=== PATIENT | female | born 1950 | race Hispanic/Latino ===

== ENCOUNTER 2018-12-05 10:58 | Inpatient (IN) | payer MEDICARE ==
--- NOTE | 2018-12-05 11:49 | ED PDOC ---
HPI: General Adult Time Seen by Provider: 12/05/18 11:35 Chief Complaint (Nursing): Weakness/Neurological Deficit Chief Complaint (Provider): Generalized weakness History Per: Patient, Family Additional Complaint(s): Pt reports bilateral hand shaking X 1 month, intermittent, resolves on its own. Was at eye doctor's appointment when she went down 2 steps and both legs gave out, fell backwards but was caught by daughter. When called into office, felt same symptoms, whole body tensed up and needed to sit down. Denies LOC, CP, SOB, focal weakness, ALFONSO, paresthesias. Pt on 2L O2 at home. Past Medical History Reviewed: Nursing Documentation, Vital Signs Vital Signs: Last Vital Signs Temp 98.2 F 12/05/18 11:25 Pulse 111 H 12/05/18 11:25 Resp 20 12/05/18 11:25 BP 93/37 L 12/05/18 11:25 Pulse Ox 75 L 12/05/18 11:25 - Medical History PMH: Diabetes, Emphysema, HTN - Family History Family History: States: Unknown Family Hx - Social History Current smoker - smoking cessation education provided: No Alcohol: None - Allergies Allergies/Adverse Reactions: Allergies Allergy/AdvReac Type Severity Reaction Status Date / Time No Known Allergies Allergy Verified 12/05/18 11:13 Review of Systems Constitutional: Negative for: Fever, Chills Cardiovascular: Negative for: Chest Pain, Palpitations Respiratory: Negative for: Cough, Shortness of Breath Gastrointestinal: Negative for: Nausea, Vomiting, Abdominal Pain, Diarrhea Genitourinary Female: Negative for: Dysuria, Hematuria Skin: Negative for: Rash, Lesions Neurological: Positive for: Weakness (Generalized). Negative for: Numbness, Incoordination, Change in Speech, Confusion, Seizures, Altered Mental Status, Headache, Dizziness Physical Exam - Reviewed Vital Signs Reviewed: Yes - Physical Exam Appears: Positive for: Well, No Acute Distress (Speaking full sentences) Head Exam: Positive for: ATRAUMATIC Skin: Positive for: Normal Color, Warm, Dry Eye Exam: Positive for: Normal appearance, EOMI, PERRL Cardiovascular/Chest: Positive for: Tachycardia. 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 Negative for: Motor/Sensory Deficits, Aphasia, Facial Droop - Laboratory Results Result Diagrams: 12/05/18 11:57 12/05/18 11:57 - ECG O2 Sat by Pulse Oximetry: 75 Pulse Ox Interpretation: Abnormal - Radiology X-Ray: Interpreted by Sd X-Ray Interpretation: No Acute Disease - Critical Care Total Time (In Min): 60 Medical Decision Making Medical Decision Makin yo female with generalized weakness. - labs - EKG - CXR - CT head 13:20 BiPAP ordered but no machines available, Vapotherm ordered. 14:[address] Henry, admit to ICU. 15:[address] Boswell, Dr. Cuello for Pulmonary consult. Disposition - Clinical Impression Clinical Impression: Acute respiratory failure with hypoxia and hypercarbia, Uncontrolled diabetes mellitus - Disposition Disposition Time: 14:46 Condition: GUARDED - Pt Status Changed To: Hospital Disposition Of: Inpatient - Admit Certification Admit to Inpatient:: After my assessment, the patient will require hospitalization for at least two midnights. This is because of the severity of symptoms shown, intensity of services needed, and/or the medical risk in this patient being treated as an outpatient. - POA Present On Arrival: Poor Glycemic Control
[2018-12-05 12:05] LABS: BASO # 0.1 K/uL (0.0-0.2); BASO % 0.9 % (0.0-2.0); EOS # 0.1 K/uL (0.0-0.7); EOS % 0.6 % (0.0-4.0); HEMOGLOBIN 7.8 g/dL (12.0-16.0); LYMPH % 11.2 % (20.0-40.0); MEAN CELL VOLUME 74.9 fl (81.0-99.0); MEAN CORPUSCULAR HGB CONC 26.6 g/dL (33.0-37.0); MONO # 0.6 K/uL (0.0-0.8); MONO % 6.8 % (0.0-10.0); NEUT # 6.9 K/uL (1.8-7.0); NEUT % 80.5 % (50.0-75.0); NRBC % 0.1 % (0.0-0.0); RBC 3.91 Mil/uL (3.80-5.20); RED CELL DISTRIBUTION WIDTH 21.4 % (11.5-14.5); WHITE BLOOD COUNT 8.6 K/uL (4.8-10.8)
[2018-12-05 12:11] LABS: INR 1.1; PROTHROMBIN TIME 12.5 Seconds (9.8-13.1)
[2018-12-05 12:13] LABS: PARTIAL THROMBOPLASTIN TIME 30.9 Seconds (25.6-37.1)
[2018-12-05 12:31] LABS: ALB/GLOB RATIO 1.1 (1.0-2.1); ALBUMIN 3.8 g/dL (3.5-5.0); ALT/SGPT 34 U/L (9-52); AST/SGOT 36 U/L (14-36); BLOOD UREA NITROGEN 26 mg/dl (7-17); CALCIUM 9.1 mg/dL (8.4-10.2); GFR NON-AFRICAN AMERICAN > 60
[2018-12-05] MEDS ORDERED: Insulin Regular 100 units/ml IV STA (12:39)
--- NOTE | 2018-12-05 12:49 | CT ---
Date of service: 12/05/2018 PROCEDURE: CT HEAD WITHOUT CONTRAST. HISTORY: Generalized weakness COMPARISON: No prior study available comparison TECHNIQUE: Axial computed tomography images were obtained through the head/brain without intravenous contrast. Radiation dose: Total exam DLP = 873.94 mGy-cm. This CT exam was performed using one or more of the following dose reduction techniques: Automated exposure control, adjustment of the mA and/or kV according to patient size, and/or use of iterative reconstruction technique. FINDINGS: HEMORRHAGE: No acute parenchymal, subarachnoid or extra-axial hemorrhage. BRAIN: Suspect minimal chronic periventricular white matter ischemic changes. Mild age-appropriate volume loss.. Minor vascular calcifications both carotid siphons. VENTRICLES: No obstructive hydrocephalus. CALVARIUM: Unremarkable. PARANASAL SINUSES: The frontal sinuses are hypoplastic although clear.. Remaining visualized paranasal sinuses well-developed and currently well-aerated. MASTOID AIR CELLS: Unremarkable as visualized. No inflammatory changes. OTHER FINDINGS: None. IMPRESSION: No acute intracranial hemorrhage. Suspect minimal chronic periventricular white matter ischemic changes.
[2018-12-05 13:08] LABS: ABG ALLEN TEST YES; ARTERIAL BLOOD GAS HEMOGLOBIN 7.9 g/dL (11.7-17.4); ARTERIAL BLOOD GAS O2 CAPACITY 10.3 mL/dL (16-24); ARTERIAL BLOOD GAS O2 CONTENT 9.3 ML/dL (15-23); ARTERIAL BLOOD GAS O2 SAT 90.3 % (95-98); ARTERIAL BLOOD GAS PCO2 91 mm/Hg (35-45); ARTERIAL BLOOD GAS PH 7.33 (7.35-7.45); ARTERIAL BLOOD GAS PO2 49 mm/Hg (80-100); ARTERIAL BLOOD GAS TCO2 50.8 mmol/L (22-28)
[2018-12-05] MEDS ORDERED: Albuterol-Ipratrop 3 mg / 0.5 (3 ml) UD INH STA ×2 (14:41→16:49)
[2018-12-05] MEDS ORDERED: Insulin Regular 100 units/ml ONE (14:52)
--- NOTE | 2018-12-05 14:58 | RAD ---
Date of service: 12/05/2018 HISTORY: Generalized weakness COMPARISON: No prior. FINDINGS: LUNGS: No active pulmonary disease. PLEURA: No significant pleural effusion identified, no pneumothorax apparent. CARDIOVASCULAR: No aortic atherosclerotic calcification present. Normal cardiac size. No pulmonary vascular congestion. OSSEOUS STRUCTURES: No significant abnormalities. VISUALIZED UPPER ABDOMEN: Normal. OTHER FINDINGS: None. IMPRESSION: No active disease.
[2018-12-05] MEDS ORDERED: Albuterol-Ipratrop 3 mg / 0.5 (3 ml) UD ONE ×2 (15:16→16:53)
[2018-12-05] MEDS ORDERED: Azithromycin 500 MG IV IVPB ONE (15:16)
[2018-12-05] MEDS ORDERED: cefTRIAXone (Rocephin) 1 gm Inj ONE (15:16)
[2018-12-05] MEDS: Azithromycin 500 MG in Sodium Chloride 0.9% 250 ML IV STA (16:55)
[2018-12-05] MEDS ORDERED: Potassium Chloride 20 MEQ in Sodium Chloride 0.45% 1,000 ML IV SCH (17:45)
[2018-12-05 19:17] LABS: SQUAMOUS EPITHIAL 3 /hpf (0-5); URINE BACTERIA RARE (<OCC); URINE BILIRUBIN NEGATIVE (NEGATIVE); URINE BLOOD SMALL (NEGATIVE); URINE CLARITY SLIGHTY-CLOUDY (Clear); URINE COLOR YELLOW (YELLOW); URINE GLUCOSE (UA) >=500 mg/dL (NEGATIVE); URINE LEUKOCYTE ESTERASE NEG Leu/uL (Negative); URINE PROTEIN NEGATIVE (NEGATIVE)
[2018-12-05] MEDS: Albuterol-Ipratrop 3 mg / 0.5 (3 ml) UD INH SCH (19:38)
[2018-12-05] MEDS: Insulin Regular 100 units/ml SC SCH (21:20)
[2018-12-06 05:43] LABS: HEMOGLOBIN 7.7 g/dL (12.0-16.0); MEAN CELL VOLUME 72.7 fl (81.0-99.0); MEAN CORPUSCULAR HEMOGLOBIN 19.9 pg (27.0-31.0); MEAN CORPUSCULAR HGB CONC 27.4 g/dL (33.0-37.0); RBC 3.87 Mil/uL (3.80-5.20); RED CELL DISTRIBUTION WIDTH 21.4 % (11.5-14.5); WHITE BLOOD COUNT 7.1 K/uL (4.8-10.8)
[2018-12-06 05:45] LABS: BLOOD UREA NITROGEN 26 mg/dl (7-17); CALCIUM 9.2 mg/dL (8.4-10.2); GFR NON-AFRICAN AMERICAN > 60
--- NOTE | 2018-12-06 05:51 | PN ---
DATE: 12/05/2018 CRITICAL CARE PROGRESS NOTE LOCATION: The patient is in room 423. TIME SPENT: 45 minutes. SUBJECTIVE: The patient is seen and evaluated at the bedside. Events in ER discussed with ER physician and noted. Past medical, surgical, family and social history reviewed. A 68-year-old morbidly obese female, a reformed smoker with history significant for chronic obstructive pulmonary disease, diabetes mellitus type 2, hypertension, diabetic neuropathy, possible obstructive sleep apnea, status post recent sleep study, awaiting for the report, has been in her usual state of health until a month. The patient has been noting shaking of the extremities being followed by primary Dr. Boswell and wallpaper consultant Dr. Dane Ko. 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 In ER, the patient's vital signs showed temperature 98.2, heart rate of 111, respiratory rate 20, blood pressure 93/37, pulse oximetry 75% on room air. Chest x-ray showed no acute abnormality. Arterial blood gas showed a hypercapnic hypoxic respiratory failure. The patient is placed on high-flow nasal oxygen. Admitted to ICU. REVIEW OF SYSTEMS: No fever, chills, cough. No chest pain, palpitation. No reduced appetite. No nausea, vomiting, no diarrhea. Swelling of the lower extremities, unsteady gait due to diabetic neuropathy. MEDICATIONS AT HOME: Noted aspirin 81 mg daily, Plavix 75 mg daily, metformin 1 tablet twice daily with empagliflozin, Lexapro 20 mg daily, simvastatin 1 tablet daily, ferrous sulfate 1 tablet daily, furosemide 40 mg daily, glipizide 5 mg b.i.d., Vascepa 2 g twice daily, Linzess 145 mg daily; liraglutide (Victoza) 0.6 mg/0.1 mL, 1.8 mg subcu daily; Lyrica 50 mg at bedtime, valsartan 40 mg daily, vortioxetine 10 mg daily at night. ALLERGIES: NONE. FAMILY HISTORY: Noncontributory. SOCIAL HISTORY: Lives with family, reformed smoker, does not drink alcohol. No recreational drug use. PHYSICAL EXAMINATION: GENERAL: Morbidly obese female with a BMI 38.6. Oriented to name, place and time. VITAL SIGNS: Temperature 98.4, heart rate 115, blood pressure 115/57, respiratory rate of 22, saturation 93% on high-flow nasal oxygen, FiO2 of 50%. HEAD, EYES, EARS, NOSE AND THROAT: Pupils reactive. Conjunctivae pale. Sclerae white. NECK: Supple. Trachea central. CHEST: Bilateral breath sounds. Prolonged expiration. Bilateral audible wheezing. HEART: Rhythm regular. S1, S2 rapid. No S3, S4, gallop. No audible murmur. ABDOMEN: Bowel sounds present. Soft, pendulous, nontender. EXTREMITIES: Dependent edema. DP palpable. No palpable cord. NEUROLOGIC: Alert and oriented to name, place and time. No cranial nerve deficit. Deep tendon reflexes are 1+. Sensory impairment, plantar flexor. LABORATORY DATA: PT 12.5, INR 1.1, PTT 30.9. ABG: pH of 7.33, pCO2 of 91, pO2 of 49. Oxygen on FiO2 is 2 liters. SMA-7: Sodium 139, potassium 5, chloride 90, CO2 of 41, blood urea nitrogen 26, creatinine 0.7, random glucose 339, calcium 9.1, phosphorus 4.9, magnesium 1.8, total bilirubin 0.8, AST 36, ALT 34, alkaline phosphatase 62, troponin 0.014, total protein 7.1, albumin 3.8. TSH 3.25. Serology: Influenza A and B negative. Microbiology: Blood culture report pending. Chest x-ray: No focal infiltrate, no pleural effusion, no pneumothorax. Head CT: Age appropriate atrophy, otherwise unremarkable. IMPRESSION AND PLAN: 1. Neurologic: Alert, oriented to name, place and time. History of chronic obstructive pulmonary disease with hypoxemia and possible obstructive sleep apnea, morbid obesity related hypoventilation. 2. Pulmonary: Hypercapnic hypoxic respiratory failure, chronic obstructive pulmonary disease, possible obstructive sleep apnea, possible obesity hypoventilation syndrome. Continue BiPAP or high-flow nasal oxygen. Maintain pO2 above 60, DuoNeb 3 mL via nebulizer every 6 hours, short course of systemic steroid 20 mg intravenous every 12 hours. 3. Cardiac: History of hypertension. Add losartan 25 mg p.o. daily. 4. Endocrine: Diabetes mellitus type 2. Continue her medications glipizide 5 mg p.o. twice daily, Victoza 1.8 mg subcu daily, Lyrica 50 mg at night. 5. Hematology: Low mean corpuscular volume anemia, rule out iron deficiency superimposed on diabetic kidney disease. 6. Nutritional status, albumin 3.8, within normal range. 7. Deep venous thrombosis prophylaxis with Lovenox 40 mg subcu daily. Gigi Henry MD
[2018-12-06] MEDS: Albuterol-Ipratrop 3 mg / 0.5 (3 ml) UD INH SCH ×4 (07:58→19:19)
[2018-12-06] MEDS: Azithromycin 500 MG in Sodium Chloride 0.9% 250 ML IVPB SCH (08:51)
[2018-12-06] MEDS: Insulin Regular 100 units/ml SC SCH ×4 (08:55→22:02)
[2018-12-06] MEDS ORDERED: Enoxaparin 40 mg Syringe SC SCH (09:00)
--- NOTE | 2018-12-06 09:52 | CP.PCM.CON ---
History of Present Illness - History of Present Illness History of Present Illness: This 68-year-old female who suffers from chronic obstructive pulmonary disease with chronic hypercapnic respiratory failure presented to the hospital after having an episode of weakness, shaking and near syncope. On presentation to the emergency department she was found to be in acute hypercapnic respiratory failure with respiratory acidosis acidosis and was placed on noninvasive positive pressure ventilation. She claimed to have a generalized sense of weakness which came on abruptly without loss of consciousness. She began to fall but was caught by her daughter to prevent further injury. She denied chest pain or loss of consciousness at that time. Past Patient History - Past Medical History & Family History Past Medical History?: Yes Pertinent Family History: Father-liver cancer. Mother-CAD. Grandparent-DM. - Past Social History Smoking Status: Former Smoker Chewing Tobacco Use: No Cigar Use: No Alcohol: Social Drugs: Denies Home Situation {Lives}: With Family - CARDIAC Hx Congestive Heart Failure: Yes Hx Hypertension: Yes Hx Peripheral Vascular Disease: Yes - PULMONARY Hx Emphysema: Yes Hx Pneumonia: Yes Hx Sleep Apnea: Yes - NEUROLOGICAL Other/Comment: diabetic neuropathy - HEENT Other/Comment: BCC removed from nose - RENAL Hx Chronic Kidney Disease: No - ENDOCRINE/METABOLIC Hx Diabetes Mellitus Type 2: Yes - HEMATOLOGICAL/ONCOLOGICAL Hx Anemia: Yes Hx Human Immunodeficiency Virus (HIV): No - INTEGUMENTARY Other/Comment: skin cancer nose - MUSCULOSKELETAL/RHEUMATOLOGICAL Hx Falls: Yes - GASTROINTESTINAL Hx Gastrointestinal Disorders: No - GENITOURINARY/GYNECOLOGICAL Hx Genitourinary Disorders: No - PSYCHIATRIC Hx Depression: Yes Hx Substance Use: No - SURGICAL HISTORY Hx Cardiac Catheterization: Yes Hx Cholecystectomy: Yes Hx Coronary Stent: Yes Hx Tubal Ligation: Yes - ANESTHESIA Hx Anesthesia: Yes Hx Anesthesia Reactions: No Meds Allergies/Adverse Reactions: Allergies Allergy/AdvReac Type Severity Reaction Status Date / Time No Known Allergies Allergy Verified 12/05/18 11:13 - Medications Medications: Current Medications Albuterol/Ipratropium (Duoneb 3 Mg/0.5 Mg (3 Ml) Ud) 3 ml INH RQID [facility] Last Admin: 12/06/18 07:58 Dose: 3 ml Enoxaparin Sodium (Lovenox) 40 mg SC DAILY [facility]; Protocol Last Admin: 12/06/18 08:46 Dose: 40 mg Ferrous Sulfate (Feosol) 325 mg PO DAILY [facility] Last Admin: 12/06/18 08:46 Dose: 325 mg Ceftriaxone Sodium 1 gm/ (Sodium Chloride) 100 mls @ 100 mls/hr IVPB [facility]ILY [facility]; Protocol Last Admin: 12/06/18 08:50 Dose: 100 mls/hr Azithromycin 500 mg/ Sodium (Chloride) 250 mls @ 250 mls/hr IVPB [facility]ILY [facility]; Protocol Last Admin: 12/06/18 08:51 Dose: 250 mls/hr Potassium Chloride 20 meq/ (Sodium Chloride) 1,010 mls @ 40 mls/hr IV .Q24H [facility] Stop: 12/06/18 17:33 Last Admin: 12/05/18 21:20 Dose: 40 mls/hr Insulin Human Regular (Humulin R) 2 units SC ACHS [facility]; Protocol Last Admin: 12/06/18 08:55 Dose: Not Given Losartan Potassium (Cozaar) 25 mg PO DAILY [facility] Last Admin: 12/06/18 08:46 Dose: 25 mg Metformin HCl (Glucophage) 1,000 mg PO BIDWM [facility] Last Admin: 12/06/18 08:46 Dose: 1,000 mg Prednisone (Prednisone Tab) 30 mg PO DAILY [facility] Pregabalin (Lyrica) 50 mg PO BID [facility] Last Admin: 12/06/18 08:54 Dose: 50 mg Physical Exam - Additional Findings Additional findings: Overweight female who appears to have depressed facies. There is no flapping tremor. There is trace dependent edema at the ankles. No cyanosis. No calf tenderness. No palpable venous cords. Her speech is fluent and she is clear mentally.(had been treated overnight with NPPV) There is no palpable lymphadenopathy. Pharynx is pink and mucous membranes are moist without exudate. Nares are patent bilaterally without bleeding or exudate. Neck is supple and trachea midline. No neck vein distention is seen. No carotid bruit. No dullness on chest percussion. Increased AP diameter of the thorax is noted. Breath sounds are diminished bilaterally without any audible wheezes or rales. No bronchial breath sounds or egophony. No rhonchi or rub. Heart sounds are distant. Tachycardic. Rhythm is regular with a systolic murmur at the base. Abdomen is obese, fleshy and nontender with normal bowel sounds. Results - Vital Signs Recent Vital Signs: Last Vital Signs Temp 98.6 F 12/06/18 08:00 Pulse 114 H 12/06/18 08:46 Resp 19 12/06/18 08:00 BP 134/61 12/06/18 08:46 Pulse Ox 100 12/06/18 08:00 - Labs Result Diagrams: 12/08/18 04:30 12/08/18 04:30 Labs: Laboratory Results - last 24 hr 12/05/18 12/05/18 12/05/18 11:36 11:57 11:57 WBC 8.6 RBC 3.91 Hgb 7.8 L Hct 29.3 L MCV 74.9 L MCH 20.0 L MCHC 26.6 L RDW 21.4 H Plt Count 332 MPV 8.0 Neut % (Auto) 80.5 H Lymph % (Auto) 11.2 L [place] % (Auto) 6.8 Eos % (Auto) 0.6 Baso % (Auto) 0.9 Neut # (Auto) 6.9 Lymph # (Auto) 1.0 [place] # (Auto) 0.6 Eos # (Auto) 0.1 Baso # (Auto) 0.1 PT INR APTT pCO2 pO2 HCO3 ABG pH ABG Total CO2 ABG O2 Saturation ABG O2 Content ABG Base Excess ABG Hemoglobin ABG Carboxyhemoglobin POC ABG HHb (Measured) ABG Methemoglobin ABG O2 Capacity [place] Test A-a O2 Difference Hgb O2 Saturation FiO2 Crit Value Called To Crit Value Called By Crit Value Read Back Blood Gas Notified Time Sodium Potassium Chloride Carbon Dioxide Anion Gap BUN Creatinine Est GFR ( Amer) Est GFR (Non-Af Amer) POC Glucose (mg/dL) 334 H Random Glucose Calcium Phosphorus 4.9 H Magnesium 1.8 Total Bilirubin AST ALT Alkaline Phosphatase Troponin I Total Protein Albumin Globulin Albumin/Globulin Ratio TSH 3rd Generation Urine Color Urine Clarity Urine pH Ur Specific [place] Urine Protein Urine Glucose (UA) Urine Ketones Urine Blood Urine Nitrate Urine Bilirubin Urine Urobilinogen Ur Leukocyte Esterase Urine RBC (Auto) Urine Microscopic WBC Ur Squamous Epith Cells Urine Bacteria Influenza Typ A,B (EIA) 12/05/18 12/05/18 12/05/18 11:57 11:57 12:45 WBC RBC Hgb Hct MCV MCH MCHC RDW Plt Count MPV Neut % (Auto) Lymph % (Auto) [place] % (Auto) Eos % (Auto) Baso % (Auto) Neut # (Auto) Lymph # (Auto) [place] # (Auto) Eos # (Auto) Baso # (Auto) PT 12.5 INR 1.1 APTT 30.9 pCO2 pO2 HCO3 ABG pH ABG Total CO2 ABG O2 Saturation ABG O2 Content ABG Base Excess ABG Hemoglobin ABG Carboxyhemoglobin POC ABG HHb (Measured) ABG Methemoglobin ABG O2 Capacity [place] Test A-a O2 Difference Hgb O2 Saturation FiO2 Crit Value Called To Crit Value Called By Crit Value Read Back Blood Gas Notified Time Sodium 139 Potassium 5.0 Chloride 90 L Carbon Dioxide 41 H* Anion Gap 13 BUN 26 H Creatinine 0.7 Est GFR ( Amer) > 60 Est GFR (Non-Af Amer) > 60 POC Glucose (mg/dL) Random Glucose 339 H Calcium 9.1 Phosphorus Magnesium Total Bilirubin 0.8 AST 36 ALT 34 Alkaline Phosphatase 62 Troponin I 0.0140 Total Protein 7.1 Albumin 3.8 Globulin 3.3 Albumin/Globulin Ratio 1.1 TSH 3rd Generation 3.25 Urine Color Urine Clarity Urine pH Ur Specific [place] Urine Protein Urine Glucose (UA) Urine Ketones Urine Blood Urine Nitrate Urine Bilirubin Urine Urobilinogen Ur Leukocyte Esterase Urine RBC (Auto) Urine Microscopic WBC Ur Squamous Epith Cells Urine Bacteria Influenza Typ A,B (EIA) 12/05/18 12/05/18 12/05/18 13:00 15:50 19:00 WBC RBC Hgb Hct MCV MCH MCHC RDW Plt Count MPV Neut % (Auto) Lymph % (Auto) [place] % (Auto) Eos % (Auto) Baso % (Auto) Neut # (Auto) Lymph # (Auto) [place] # (Auto) Eos # (Auto) Baso # (Auto) PT INR APTT pCO2 91 H* pO2 49 L HCO3 40.0 H ABG pH 7.33 L ABG Total CO2 50.8 H ABG O2 Saturation 90.3 L ABG O2 Content 9.3 L ABG Base Excess 19.5 H ABG Hemoglobin 7.9 L ABG Carboxyhemoglobin 5.0 H POC ABG HHb (Measured) 9.0 H ABG Methemoglobin 2.3 ABG O2 Capacity 10.3 L [place] Test Yes A-a O2 Difference 37.0 Hgb O2 Saturation 83.7 L FiO2 28.0 Crit Value Called To Dr. catrina carrero Crit Value Called By 23 Crit Value Read Back Y Blood Gas Notified Time 1300 Sodium Potassium Chloride Carbon Dioxide Anion Gap BUN Creatinine Est GFR ( Amer) Est GFR (Non-Af Amer) POC Glucose (mg/dL) Random Glucose Calcium Phosphorus Magnesium Total Bilirubin AST ALT Alkaline Phosphatase Troponin I Total Protein Albumin Globulin Albumin/Globulin Ratio TSH 3rd Generation Urine Color Yellow Urine Clarity Slighty-cloudy Urine pH 6.0 Ur Specific [place] 1.025 Urine Protein Negative Urine Glucose (UA) >=500 Urine Ketones Negative Urine Blood Small Urine Nitrate Negative Urine Bilirubin Negative Urine Urobilinogen 1.0 Ur Leukocyte Esterase Neg Urine RBC (Auto) 4 H Urine Microscopic WBC 5 Ur Squamous Epith Cells 3 Urine Bacteria Rare Influenza Typ A,B (EIA) Negative for flu a/b 12/05/18 12/06/18 12/06/18 21:08 04:20 04:20 WBC 7.1 RBC 3.87 Hgb 7.7 L Hct 28.2 L MCV 72.7 L D MCH 19.9 L MCHC 27.4 L RDW 21.4 H Plt Count 286 MPV Neut % (Auto) Lymph % (Auto) [place] % (Auto) Eos % (Auto) Baso % (Auto) Neut # (Auto) Lymph # (Auto) [place] # (Auto) Eos # (Auto) Baso # (Auto) PT INR APTT pCO2 pO2 HCO3 ABG pH ABG Total CO2 ABG O2 Saturation ABG O2 Content ABG Base Excess ABG Hemoglobin ABG Carboxyhemoglobin POC ABG HHb (Measured) ABG Methemoglobin ABG O2 Capacity [place] Test A-a O2 Difference Hgb O2 Saturation FiO2 Crit Value Called To Crit Value Called By Crit Value Read Back Blood Gas Notified Time Sodium 138 Potassium 5.0 Chloride 93 L Carbon Dioxide 44 H* Anion Gap 6 L BUN 26 H Creatinine 0.6 L Est GFR ( Amer) > 60 Est GFR (Non-Af Amer) > 60 POC Glucose (mg/dL) 230 H Random Glucose 166 H Calcium 9.2 Phosphorus Magnesium Total Bilirubin AST ALT Alkaline Phosphatase Troponin I Total Protein Albumin Globulin Albumin/Globulin Ratio TSH 3rd Generation Urine Color Urine Clarity Urine pH Ur Specific [place] Urine Protein Urine Glucose (UA) Urine Ketones Urine Blood Urine Nitrate Urine Bilirubin Urine Urobilinogen Ur Leukocyte Esterase Urine RBC (Auto) Urine Microscopic WBC Ur Squamous Epith Cells Urine Bacteria Influenza Typ A,B (EIA) 12/06/18 06:13 WBC RBC Hgb Hct MCV MCH MCHC RDW Plt Count MPV Neut % (Auto) Lymph % (Auto) [place] % (Auto) Eos % (Auto) Baso % (Auto) Neut # (Auto) Lymph # (Auto) [place] # (Auto) Eos # (Auto) Baso # (Auto) PT INR APTT pCO2 pO2 HCO3 ABG pH ABG Total CO2 ABG O2 Saturation ABG O2 Content ABG Base Excess ABG Hemoglobin ABG Carboxyhemoglobin POC ABG HHb (Measured) ABG Methemoglobin ABG O2 Capacity [place] Test A-a O2 Difference Hgb O2 Saturation FiO2 Crit Value Called To Crit Value Called By Crit Value Read Back Blood Gas Notified Time Sodium Potassium Chloride Carbon Dioxide Anion Gap BUN Creatinine Est GFR ( Amer) Est GFR (Non-Af Amer) POC Glucose (mg/dL) 128 H Random Glucose Calcium Phosphorus Magnesium Total Bilirubin AST ALT Alkaline Phosphatase Troponin I Total Protein Albumin Globulin Albumin/Globulin Ratio TSH 3rd Generation Urine Color Urine Clarity Urine pH Ur Specific [place] Urine Protein Urine Glucose (UA) Urine Ketones Urine Blood Urine Nitrate Urine Bilirubin Urine Urobilinogen Ur Leukocyte Esterase Urine RBC (Auto) Urine Microscopic WBC Ur Squamous Epith Cells Urine Bacteria Influenza Typ A,B (EIA) Assessment & Plan (1) Chronic respiratory failure with hypoxia and hypercapnia Assessment and Plan: Acute decompensation on chronic disease. Status: Acute Priority: High (2) Acute exacerbation of chronic obstructive pulmonary disease (COPD) Status: Acute Priority: High (3) JESUS and COPD overlap syndrome Status: Acute Priority: High - Assessment and Plan (Free Text) Assessment: Patient appears to have recovered well on current regimen. Steroid dosing has been decreased further. To remain on NPPV with HFNC at 20LPM and O2 at 30%. Maintain SpO2 in range 88-92%. Needs follow up CPAP titration after discharge. Can be transferred to telemetry. - Date & Time Date: 12/06/18 Time: 09:52
--- NOTE | 2018-12-06 16:43 | CP.CCUPN ---
CCU Subjective - Physician Review Subjective (Free Text): Awake , and alert, interactive with family at the bedside, remain on HFNC< reduced from 50% oxygen to 30% with SDPO2 at 98%. No overall distress. Afebrile, no fever spikes overnight, Tmax 100.7F yesterday afternoon, SBP 110- 120s; HR 80s, fluid balance =2.6L. ROS: No other pertinent negs or positives on 10+ system review. Allergies: NKDA PMSFH: All other Nursing and physician documentation reviewed to date; no new pertinent info noted relevant to current medical problems. EXAM- HEENT: no icterus, no gaze preference NECK: No JVD visible, supple, carotids equal upstroke bilat/no bruit CHEST: decreased BS at the bases, no wheezes audible bilaterally. HEART: regular, distant, S1S2, no rubs or murmurs noted ABD: soft, nontender, no guarding, no organomegaly, BS hypoactive. EXT: trace to +1 leg edema- SCDs on bilat, no calf tenderness or palpable cords, distal pulses intact NEURO: no gross focal motor deficits, + tone in all extremities. SKIN: no rashes, warm and dry LABS: WBC= 7.1 HGB= 7.7 PLTs= 286K Na= 138 K= 5.0 CL= 93 HCO3= 44 BUN/Cr= 26/0.6 BS= 166 CXR: (my interp)- clear, no gross consolidation IMPRESSION / MAJOR PROBLEMS NOW: 1. Acute Hypercapneic Resp Failure, 2 COPD Exacerbation 2. Metabolic Encephalopathy with AMS 2 #1 3. Chronic disease Anemia 4. Hand Tremors ( intermittent) 5. h/o DM II PLAN: 1. Add Duonebs. 2. Stop K in IVFs. Lasix prn, no decompensated CHF evident. Check old records for any ECHO, if none, will order. 3. Convert to IV Steroids if significant hypercarbia remains. 4. Empiric Rocephin Zithro noted. 5. Serum Fe/ TIBC 6. Tolerating HFNC, BiPAP / MV on reserve if she deteriorates. No Advance Directives noted.
--- NOTE | 2018-12-06 18:01 | CARD ---
APPROVED REPORT Date of service: 12/06/2018 EKG Measurement Heart [id number] [place] 198P [id number] <Conclusion> Atrial flutter with variable block Right bundle branch block Abnormal ECG
[2018-12-06 18:46] LABS: BLOOD UREA NITROGEN 32 mg/dl (7-17); CALCIUM 9.2 mg/dL (8.4-10.2); GFR NON-AFRICAN AMERICAN 50
--- NOTE | 2018-12-06 19:37 | PCM.RRT ---
WEBSITE ADMIN Nurse Assessment - Ventilator Settings FIO2 (% Oxygen): 30 I.Reason for WEBSITE ADMIN - A) Acute Change in Patient: Subjective: WEBSITE ADMIN Call Time: 17:50 WEBSITE ADMIN Arrival Time: 17:51 WEBSITE ADMIN Location: Telemetry 408-2 S: WEBSITE ADMIN was called by RN on 68 y/o F due to tachycardia after being moved from commode to bed. Pt reports mild SOB. Pt denies headache, dizziness, chest pain, abdominal pain, N/V. O: >>VITALS: HR 208, Sat O2 97%, Temp 97.8 F, BP 117/81 >>PHYSICAL EXAM: -GEN: Pt awake and alert, responsive to tactile and verbal stimuli. -HEENT: NC/AT, EOMI, PERRL, moist mucous membranes -NECK: normal ROM. -CV: S1 and S2 present, tachycardia -LUNGS: CTAB -EXT: No edema or cyanosis. WEBSITE ADMIN Interventions. --Supraventicular tachycardia on monitor screen --12 lead EKG STAT ordered, SVT appreciated. --Vasalva maneuver and carotid massage performed. --Pt remained awake, alert and responsive during whole WEBSITE ADMIN. --HR was lowered to 111. >>VITAL SIGNS after interventions: HR 107, BP 118/80, Sat 90% A/P: 68 y/o F with a PMHx DM, COPD/emphysema and HTN admitted for acute respiratory failure, developed SVT and WEBSITE ADMIN called. --Dr Boswell, admitting physician was contacted and updated. --Cardiology consult, Dr Wiley. --Serum troponin, BMP ordered --F/u results WEBSITE ADMIN Bridge Inspector: Dr Nova, hospitalist WEBSITE ADMIN Team: Dr Toledo PGY-3, Dr Montano PGY-2, Dr Corrales PGY-1, Dr Willoughby PGY-2 WEBSITE ADMIN End Time: 17:55
[2018-12-07 05:25] LABS: BASO # 0.1 K/uL (0.0-0.2); BASO % 0.7 % (0.0-2.0); EOS # 0.1 K/uL (0.0-0.7); EOS % 0.9 % (0.0-4.0); HEMOGLOBIN 7.6 g/dL (12.0-16.0); LYMPH # 2.6 K/uL (1.0-4.3); LYMPH % 32.3 % (20.0-40.0); MEAN CELL VOLUME 71.9 fl (81.0-99.0); MEAN CORPUSCULAR HGB CONC 27.8 g/dL (33.0-37.0); MONO # 0.6 K/uL (0.0-0.8); MONO % 8.2 % (0.0-10.0); NEUT # 4.6 K/uL (1.8-7.0); NEUT % 57.9 % (50.0-75.0); NRBC % 0.1 % (0.0-0.0); RBC 3.81 Mil/uL (3.80-5.20)
[2018-12-07 06:14] LABS: BLOOD UREA NITROGEN 34 mg/dl (7-17); GFR NON-AFRICAN AMERICAN > 60
[2018-12-07] MEDS: Albuterol-Ipratrop 3 mg / 0.5 (3 ml) UD INH SCH ×4 (07:26→19:08)
[2018-12-07] MEDS ORDERED: Enoxaparin 100 mg Syringe SC SCH (09:00)
--- NOTE | 2018-12-07 09:36 | CP.PCM.PN ---
Subjective - Date & Time of Evaluation Date of Evaluation: 12/07/18 Time of Evaluation: 09:36 - Subjective Subjective: The patient was seen this morning on rounds in telemetry with the resident. Physical findings were reviewed and a plan of care discussed. The entry in the EMR made by the resident accurately reflects our findings. Objective - Vital Signs/Intake and Output Vital Signs (last 24 hours): Temp Pulse Resp BP Pulse Ox 97.9 F 117 H 20 123/78 97 12/07/18 08:10 12/07/18 08:10 12/07/18 08:10 12/07/18 08:10 12/07/18 08:10 Intake and Output: 12/06/18 12/07/18 23:59 11:59 Intake Total 1550 Balance 1550 - Medications Medications: Current Medications Acetaminophen (Tylenol 325mg Tab) 650 mg PO Q6 PRN PRN Reason: Pain, moderate (4-7) Last Admin: 12/06/18 22:21 Dose: 650 mg Albuterol/Ipratropium (Duoneb 3 Mg/0.5 Mg (3 Ml) Ud) 3 ml INH RQID [facility] Last Admin: 12/07/18 07:26 Dose: 3 ml Docusate Sodium (Colace) 100 mg PO BID [facility] Last Admin: 12/06/18 19:24 Dose: 100 mg Enoxaparin Sodium (Lovenox) 100 mg SC DAILY [facility]; Protocol Ferrous Sulfate (Feosol) 325 mg PO DAILY [facility] Last Admin: 12/06/18 08:46 Dose: 325 mg Ceftriaxone Sodium 1 gm/ (Sodium Chloride) 100 mls @ 100 mls/hr IVPB DAILY [facility]; Protocol Last Admin: 12/06/18 08:50 Dose: 100 mls/hr Azithromycin 500 mg/ Sodium (Chloride) 250 mls @ 250 mls/hr IVPB DAILY [facility]; Protocol Last Admin: 12/06/18 08:51 Dose: 250 mls/hr Insulin Human Regular (Humulin R) 0 units SC ACHS [facility]; Protocol Lactulose (Enulose) 20 gm PO DAILY PRN PRN Reason: Constipation Losartan Potassium (Cozaar) 25 mg PO DAILY [facility] Last Admin: 12/06/18 08:46 Dose: 25 mg Metformin HCl (Glucophage) 1,000 mg PO BIDWM [facility] Last Admin: 12/06/18 16:38 Dose: 1,000 mg Prednisone (Prednisone Tab) 30 mg PO DAILY [facility] Pregabalin (Lyrica) 50 mg PO BID [facility] Last Admin: 12/06/18 16:40 Dose: 50 mg - Labs Labs: 12/07/18 04:15 12/07/18 04:15 PT 12.5 Seconds (9.8-13.1) 12/05/18 11:57 INR 1.1 12/05/18 11:57 APTT 30.9 Seconds (25.6-37.1) 12/05/18 11:57 Assessment and Plan (1) Chronic respiratory failure with hypoxia and hypercapnia Status: Acute (2) Acute exacerbation of chronic obstructive pulmonary disease (COPD) Status: Acute (3) JESUS and COPD overlap syndrome Status: Acute
[2018-12-07 09:45] LABS: ABG ALLEN TEST YES; ARTERIAL BLOOD GAS HCO3 36.9 mmol/L (21-28); ARTERIAL BLOOD GAS O2 CAPACITY 10.9 mL/dL (16-24); ARTERIAL BLOOD GAS O2 CONTENT 10.4 ML/dL (15-23); ARTERIAL BLOOD GAS O2 SAT 95.3 % (95-98); ARTERIAL BLOOD GAS PCO2 61 mm/Hg (35-45); ARTERIAL BLOOD GAS PH 7.44 (7.35-7.45); ARTERIAL BLOOD GAS PO2 60 mm/Hg (80-100); ARTERIAL BLOOD GAS TCO2 43.3 mmol/L (22-28)
[2018-12-07] MEDS: Azithromycin 500 MG in Sodium Chloride 0.9% 250 ML IV STA (11:09)
[2018-12-07] MEDS: Azithromycin 500 MG in Sodium Chloride 0.9% 250 ML IVPB SCH (11:12)
--- NOTE | 2018-12-07 11:26 | CP.PCM.PN ---
Subjective - Date & Time of Evaluation Date of Evaluation: 12/07/18 Time of Evaluation: 09:30 - Subjective Subjective: Pt seen and examined at bedside this AM. Tolerating Hi flow Oxygen. Yesterday evening, pt experienced and episode of SVT with AUTO PAINTER HELPER intervention. Pt reported significant improvement in respiratory function. Objective - Vital Signs/Intake and Output Vital Signs (last 24 hours): Temp Pulse Resp BP Pulse Ox 97.9 F 117 H 18 123/78 97 12/07/18 08:10 12/07/18 09:00 12/07/18 11:12 12/07/18 08:10 12/07/18 08:10 - Medications Medications: Current Medications Acetaminophen (Tylenol 325mg Tab) 650 mg PO Q6 PRN PRN Reason: Pain, moderate (4-7) Last Admin: 12/06/18 22:21 Dose: 650 mg Albuterol/Ipratropium (Duoneb 3 Mg/0.5 Mg (3 Ml) Ud) 3 ml INH RQID [facility] Last Admin: 12/07/18 11:12 Dose: 3 ml Amoxicillin (Amoxil 500 Mg Cap) 500 mg PO Q8 [facility]; Protocol Docusate Sodium (Colace) 100 mg PO BID [facility] Last Admin: 12/07/18 09:44 Dose: 100 mg Enoxaparin Sodium (Lovenox) 100 mg SC DAILY [facility]; Protocol Ferrous Sulfate (Feosol) 325 mg PO DAILY [facility] Last Admin: 12/06/18 08:46 Dose: 325 mg Insulin Human Regular (Humulin R) 0 units SC ACHS [facility]; Protocol Lactulose (Enulose) 20 gm PO DAILY PRN PRN Reason: Constipation Losartan Potassium (Cozaar) 25 mg PO DAILY [facility] Last Admin: 12/06/18 08:46 Dose: 25 mg Metformin HCl (Glucophage) 1,000 mg PO BIDWM [facility] Last Admin: 12/07/18 09:45 Dose: 1,000 mg Prednisone (Prednisone Tab) 30 mg PO DAILY [facility] Last Admin: 12/07/18 09:45 Dose: 30 mg Prednisone (Prednisone Tab) 20 mg PO DAILY [facility] Pregabalin (Lyrica) 50 mg PO BID [facility] Last Admin: 12/07/18 09:56 Dose: 50 mg - Labs Labs: 12/07/18 04:15 12/07/18 04:15 PT 12.5 Seconds (9.8-13.1) 12/05/18 11:57 INR 1.1 12/05/18 11:57 APTT 30.9 Seconds (25.6-37.1) 12/05/18 11:57 - Constitutional Appears: No Acute Distress - Eye Exam Eye Exam: EOMI - ENT Exam ENT Exam: Mucous Membranes Moist - Respiratory Exam Respiratory Exam: Wheezes (Mild Expiratory wheezing on R) Additional comments: On High flow O2 - Cardiovascular Exam Cardiovascular Exam: Tachycardia, +S1, +S2 - GI/Abdominal Exam GI & Abdominal Exam: Soft. absent: Tenderness - Extremities Exam Extremities Exam: absent: Calf Tenderness - Neurological Exam Neurological Exam: Alert, Awake, CN II-XII Intact, Oriented x3 - Psychiatric Exam Psychiatric exam: Normal Affect, Normal Mood Assessment and Plan (1) Acute exacerbation of chronic obstructive pulmonary disease (COPD) Status: Acute (2) Chronic respiratory failure with hypoxia and hypercapnia Status: Acute (3) JESUS and COPD overlap syndrome Status: Chronic - Assessment and Plan (Free Text) Assessment: 68 yo F with PMH of NIDDM2, Obesity, CAD, COPD, Chronic anemia admitted for hypercarbia, anemia and near syncope Plan: ABG reviewed HiFlow O2 increased from 20 to 25 LPM on 30% pt with mild expiratory wheezing s/p recent treatment. Will continue with Duonebs. D/C Azithro and Ceftrixone; pt to start Amoxicillin 500 mg Q8 tomorrow Prednisone taper: tomorrow: 20 mg PO qDaily Please keep O2 sat between 88-92% Pt reports GI workup including virtual colonoscopy for chronic anemia. Prior iron studies reviewed f/u stool occult blood and CBC Future discharge planning: Pt for further evaluation in outpatient for CPAP 2/2 JESUS Case and plan d/w Dr. Cuate Mcdermott MD PGY-2
[2018-12-07] MEDS: Insulin Regular 100 units/ml SC SCH ×4 (12:45→22:25)
--- NOTE | 2018-12-07 12:48 | CP.PCM.CON ---
History of Present Illness - History of Present Illness History of Present Illness: I was asked to see patient by Dr Boswell Patient seen 12/07/18 [id number] Patient is a 68 year old female with HTN hypercholesterolemia COPD admitted for hypercapenic resiratory failure. She was managed in the ICU and eventually transferred to telemetry. She developed SVT, and ELECTRIC WELDER HELPER was called. She was given metoprolol with improvement in her rhythm. She denies chest pain palpitations or syncope. Review of Systems - Constitutional Constitutional: absent: As Per HPI, Anorexia, Chills, Daytime Sleepiness, Excessive Sweating, Fatigue, Fever, Frequent Falls, Headache, Increased Appetite, Lethargy, Malaise, Night Sweats, Snoring, Sleep Apnea, Weight Gain, Weight Loss, Weakness, Other - EENT Eyes: absent: As Per HPI, Blind Spots, Blurred Vision, Change in Vision, Decreased Night Vision, Diplopia, Discharge, Dry Eye, Exophthalmos, Floaters, Irritation, Itchy Eyes, Loss of Peripheral Vision, Pain, Photophobia, Requires Corrective Lenses, Sees Flashes, Spots in Vision, Tunnel Vision, Other Visual Disturbances, Loss of Vision, Other Ears: absent: As Per HPI, Decreased Hearing, Ear Discharge, Ear Pain, Tinnitus, Abnormal Hearing, Disequilibrium, Dizziness, Other Nose/Mouth/Throat: absent: As Per HPI, Epistaxis, Nasal Congestion, Nasal Discharge, Nasal Obstruction, Nasal Trauma, Nose Pain, Post Nasal Drip, Sinus Pain, Sinus Pressure, Bleeding Gums, Change in Voice, Dental Pain, Dry Mouth, Dysphagia, Halitosis, Hoarsness, Lip Swelling, Mouth Lesions, Mouth Pain, Odynophagia, Sore Throat, Throat Swelling, Tongue Swelling, Facial Pain, Neck Pain, Neck Mass, Other - Cardiovascular Cardiovascular: absent: As Per HPI, Acrocyanosis, Chest Pain, Chest Pain at Rest, Chest Pain with Activity, Claudication, Diaphoresis, Dyspnea, Dyspnea on Exertion, Edema, Irregular Heart Rhythm, Pain Radiating to Arm/Neck/Jaw, Leg Edema, Leg Ulcers, Lightheadedness, Orthopnea, Palpitations, Paroxysmal Nocturnal Dyspnea, Pedal Edema, Radiating Pain, Rapid Heart Rate, Slow Heart Rate, Syncope, Other - Respiratory Respiratory: Dyspnea - Gastrointestinal Gastrointestinal: absent: As Per HPI, Abdominal Pain, Belching, Bloating, Change in Bowel Habits, Change in Stool Character, Coffee Ground Emesis, Constipation, Cramping, Diarrhea, Dyspepsia, Dysphagia, Early Satiety, Excessive Flatus, Fecal Incontinence, Heartburn, Hematemesis, Hematochezia, Loose Stools, Melena, Naus ea, Odynophagia, Temesmus, Vomiting, Other - Genitourinary Genitourinary: absent: As Per HPI, Change in Urinary Stream, Difficulty Urinating, Dysuria, Flank Pain, Hematuria, Pyuria, Nocturia, Urinary Incontinence, Urinary Frequency, Urinary Hesitance, Urinary Urgency, Voiding Freq/Small Amts, Freq UTI, Hx Renal/Bladder Calculi, Hx /Renal Surgery, Bladder Distension, Other - Musculoskeletal Musculoskeletal: absent: As Per HPI, Abnormal Gait, Arthralgias, Atrophy, Back Pain, Deformity, Joint Swelling, Limited Range of Motion, Loss of Height, Muscle Cramps, Muscle Weakness, Myalgias, Neck Pain, Numbness, Radiating Pain into Limb, Stiffness, Tingling, Other - Integumentary Integumentary: absent: As Per HPI, Acne, Alopecia, Bleeding Lesions, Change in Hair, Change in Nails, Change in Pigmentation, Changing Lesions, Dry Skin, Erythema, Furuncle, Hirsutism, Lesions, New Lesions, Non-Healing Lesions, Photosensitivity, Pruritus, Rash, Skin Pain, Skin Ulcer, Sores, Striae, Swe lling, Unusual Bruising, Wounds, Jaundice, Other - Neurological Neurological: absent: As Per HPI, Abnormal Gait, Abnormal Hearing, Abnormal Movements, Abnormal Speech, Behavioral Changes, Burning Sensations, Confusion, Convulsions, Disequilibrium, Dizziness, Numbness, Focal Weakness, Frequent Falls, Headaches, Lack of Coordination, Loss of Vision, Memory Loss, Paresthesias, Radicular Pain, Restless Legs, Sensory Deficit, Syncope, Tingling, Tremor, Vertigo, Weakness, Other Visual Disturbances, Other - Psychiatric Psychiatric: absent: As Per HPI, Abnormal Sleep Pattern, Anhedonia, Anxiety, Auditory Hallucinations, Behavioral Changes, Change in Appetite, Change in Libido, Confusion, Depression, Difficulty Concentrating, Hallucinations, Homicidal Ideation, Hopelessness, Irritability, Memory Loss, Mood Swings, Panic Attacks, Paranoia, Suicidal Ideation, Visual Hallucinations, Tactile Hallucinations, Other - Endocrine Endocrine: absent: As Per HPI, Change in Body Appearance, Change in Libido, Cold Intolorance, Deepening of Voice, Excessive Sweating, Fatigue, Flushing, Heat Intolorance, Increase in Ring/Shoe/Hat Size, Palpitations, Polydipsia, Polyphagia, Polyuria, Other - Hematologic/Lymphatic Hematologic: absent: As Per HPI, Easy Bleeding, Easy Bruising, Lymphadenopathy, Other Past Patient History - Past Social History Smoking Status: Former Smoker - CARDIAC Hx Hypertension: Yes - PULMONARY Hx Emphysema: Yes - ENDOCRINE/METABOLIC Hx Diabetes Mellitus Type 2: Yes - HEMATOLOGICAL/ONCOLOGICAL Hx AIDS: No Hx Human Immunodeficiency Virus (HIV): No - INTEGUMENTARY Other/Comment: skin cancer nose - MUSCULOSKELETAL/RHEUMATOLOGICAL Hx Falls: Yes - PSYCHIATRIC Hx Substance Use: No - SURGICAL HISTORY Hx Cholecystectomy: Yes Hx Tubal Ligation: Yes - ANESTHESIA Hx Anesthesia: Yes Hx Anesthesia Reactions: No Meds Allergies/Adverse Reactions: Allergies Allergy/AdvReac Type Severity Reaction Status Date / Time No Known Allergies Allergy Verified 12/05/18 11:13 - Medications Medications: Current Medications Acetaminophen (Tylenol 325mg Tab) 650 mg PO Q6 PRN PRN Reason: Pain, moderate (4-7) Last Admin: 12/06/18 22:21 Dose: 650 mg Albuterol/Ipratropium (Duoneb 3 Mg/0.5 Mg (3 Ml) Ud) 3 ml INH RQID [facility] Last Admin: 12/07/18 11:12 Dose: 3 ml Amoxicillin (Amoxil 500 Mg Cap) 500 mg PO Q8 [facility]; Protocol Docusate Sodium (Colace) 100 mg PO BID [facility] Last Admin: 12/07/18 09:44 Dose: 100 mg Enoxaparin Sodium (Lovenox) 100 mg SC DAILY [facility]; Protocol Enoxaparin Sodium (Lovenox) 40 mg SC DAILY [facility]; Protocol Ferrous Sulfate (Feosol) 325 mg PO DAILY [facility] Last Admin: 12/06/18 08:46 Dose: 325 mg Insulin Human Regular (Humulin R) 0 units SC ACHS [facility]; Protocol Lactulose (Enulose) 20 gm PO DAILY PRN PRN Reason: Constipation Losartan Potassium (Cozaar) 25 mg PO DAILY [facility] Last Admin: 12/06/18 08:46 Dose: 25 mg Metformin HCl (Glucophage) 1,000 mg PO BIDWM [facility] Last Admin: 12/07/18 09:45 Dose: 1,000 mg Prednisone (Prednisone Tab) 30 mg PO DAILY [facility] Last Admin: 12/07/18 09:45 Dose: 30 mg Prednisone (Prednisone Tab) 20 mg PO DAILY [facility] Pregabalin (Lyrica) 50 mg PO BID [facility] Last Admin: 12/07/18 09:56 Dose: 50 mg Physical Exam - Constitutional Appears: Non-toxic - Head Exam Head Exam: NORMAL INSPECTION - Eye Exam Eye Exam: Normal appearance - ENT Exam ENT Exam: Mucous Membranes Moist - Neck Exam Neck exam: Positive for: Full Rom - Respiratory Exam Respiratory Exam: Decreased Breath Sounds - Cardiovascular Exam Cardiovascular Exam: Tachycardia, REGULAR RHYTHM - GI/Abdominal Exam GI & Abdominal Exam: Normal Bowel Sounds - Rectal Exam Rectal Exam: Deferred - Extremities Exam Extremities exam: Negative for: pedal edema - Back Exam Back exam: NORMAL INSPECTION - Neurological Exam Neurological exam: Alert, Oriented x3 - Psychiatric Exam Psychiatric exam: Normal Affect - Skin Skin Exam: Normal Color Results - Vital Signs Recent Vital Signs: Last Vital Signs Temp 98.4 F 12/07/18 11:44 Pulse 119 H 12/07/18 11:44 Resp 20 12/07/18 11:44 BP 101/65 12/07/18 11:44 Pulse Ox 91 L 12/07/18 11:44 - Labs Result Diagrams: 12/07/18 04:15 12/07/18 04:15 Labs: Laboratory Results - last 24 hr 12/06/18 12/06/18 12/06/18 16:36 18:02 21:49 WBC RBC Hgb Hct MCV MCH MCHC RDW Plt Count MPV Neut % (Auto) Lymph % (Auto) [place] % (Auto) Eos % (Auto) Baso % (Auto) Neut # (Auto) Lymph # (Auto) [place] # (Auto) Eos # (Auto) Baso # (Auto) pCO2 pO2 HCO3 ABG pH ABG Total CO2 ABG O2 Saturation ABG O2 Content ABG Base Excess ABG Hemoglobin ABG Carboxyhemoglobin POC ABG HHb (Measured) ABG Methemoglobin ABG O2 Capacity Ayden Test A-a O2 Difference Hgb O2 Saturation Liter Flow Vent Mode FiO2 Sodium 134 Potassium 5.2 H Chloride 89 L Carbon Dioxide 35 H Anion Gap 15 BUN 32 H Creatinine 1.1 Est GFR ( Amer) 60 Est GFR (Non-Af Amer) 50 POC Glucose (mg/dL) 195 H 176 H Random Glucose 292 H Calcium 9.2 Troponin I < 0.0120 TSH 3rd Generation 12/07/18 12/07/18 12/07/18 04:15 04:15 05:14 WBC 8.0 RBC 3.81 Hgb 7.6 L Hct 27.4 L MCV 71.9 L MCH 20.0 L MCHC 27.8 L RDW 21.0 H Plt Count 307 MPV 8.0 Neut % (Auto) 57.9 Lymph % (Auto) 32.3 Weld % (Auto) 8.2 Eos % (Auto) 0.9 Baso % (Auto) 0.7 Neut # (Auto) 4.6 Lymph # (Auto) 2.6 Weld # (Auto) 0.6 Eos # (Auto) 0.1 Baso # (Auto) 0.1 pCO2 pO2 HCO3 ABG pH ABG Total CO2 ABG O2 Saturation ABG O2 Content ABG Base Excess ABG Hemoglobin ABG Carboxyhemoglobin POC ABG HHb (Measured) ABG Methemoglobin ABG O2 Capacity Ayden Test A-a O2 Difference Hgb O2 Saturation Liter Flow Vent Mode FiO2 Sodium 136 Potassium 4.3 Chloride 91 L Carbon Dioxide > 40 H* Anion Gap 9 L BUN 34 H Creatinine 0.7 Est GFR ( Amer) > 60 Est GFR (Non-Af Amer) > 60 POC Glucose (mg/dL) 148 H Random Glucose 137 H Calcium 9.0 Troponin I TSH 3rd Generation 1.56 12/07/18 12/07/18 09:42 10:45 WBC RBC Hgb Hct MCV MCH MCHC RDW Plt Count MPV Neut % (Auto) Lymph % (Auto) [place]eld % (Auto) Eos % (Auto) Baso % (Auto) Neut # (Auto) Lymph # (Auto) Weld # (Auto) Eos # (Auto) Baso # (Auto) pCO2 61 H pO2 60 L HCO3 36.9 H ABG pH 7.44 ABG Total CO2 43.3 H ABG O2 Saturation 95.3 ABG O2 Content 10.4 L ABG Base Excess 15.4 H ABG Hemoglobin 8.0 L ABG Carboxyhemoglobin 2.7 H POC ABG HHb (Measured) 4.5 ABG Methemoglobin 1.0 ABG O2 Capacity 10.9 L Ayden Test Yes A-a O2 Difference 78.0 Hgb O2 Saturation 91.8 L Liter Flow 20 Vent Mode High flow lpm FiO2 30.0 Sodium Potassium Chloride Carbon Dioxide Anion Gap BUN Creatinine Est GFR ( Amer) Est GFR (Non-Af Amer) POC Glucose (mg/dL) 185 H Random Glucose Calcium Troponin I TSH 3rd Generation - EKG Data EKG Interpreted by: Myself Assessment & Plan (1) SVT (supraventricular tachycardia) Assessment and Plan: likley exacerbated by hypercapnea and anemia I reviewed the echocardiogram. Left vetnricular function is normal with no wall motion abnormalities. No pericardal effusion is noted. if necessary can use cardizem for rate control. Status: Acute (2) Anemia Assessment and Plan: consider d/c lovenox as not needed for SVT. anemia workup Status: Acute
--- NOTE | 2018-12-07 14:34 | CP.PCM.HP ---
History of Present Illness - History of Present Illness History of Present Illness: This is a 68 y/o female admitted for near syncope while in a Doctor's office. She claims to have felt generalized weakness and fell and almost fainted. At the Er she was noted to have elevated CO2 ( 91 ) in resp faiure with resp acidosis.and and very low Hgb 7.8. She had episodes of severe anemia in the past for which she received transfusions. She has ahx of HTn, DM 2, JESUS COPD and HTN. She had an episode of Pul edema in the past. Last EF was She is currently on Lasix Victoza glipizide and metformin and Invokana. She follows up with Dr Cuello for her COPD and JESUS. Present on Admission - Present on Admission Any Indicators Present on Admission: No History of DVT/PE: No History of Uncontrolled Diabetes: No Urinary Catheter: No Decubitus Ulcer Present: No Review of Systems - Constitutional Constitutional: Daytime Sleepiness, Malaise, Snoring, Sleep Apnea Additional comments: anemia - Respiratory Respiratory: Cough, Dyspnea, Dyspnea on Exertion Past Patient History - Past Social History Smoking Status: Former Smoker - CARDIAC Hx Hypertension: Yes - PULMONARY Hx Emphysema: Yes - ENDOCRINE/METABOLIC Hx Diabetes Mellitus Type 2: Yes - HEMATOLOGICAL/ONCOLOGICAL Hx AIDS: No Hx Human Immunodeficiency Virus (HIV): No - INTEGUMENTARY Other/Comment: skin cancer nose - MUSCULOSKELETAL/RHEUMATOLOGICAL Hx Falls: Yes - PSYCHIATRIC Hx Substance Use: No - SURGICAL HISTORY Hx Cholecystectomy: Yes Hx Tubal Ligation: Yes - ANESTHESIA Hx Anesthesia: Yes Hx Anesthesia Reactions: No Meds Allergies/Adverse Reactions: Allergies Allergy/AdvReac Type Severity Reaction Status Date / Time No Known Allergies Allergy Verified 12/05/18 11:13 Physical Exam - Head Exam Head Exam: NORMAL INSPECTION - Eye Exam Eye Exam: Normal appearance Additional comments: pale conjunctivae - ENT Exam ENT Exam: Mucous Membranes Moist - Respiratory Exam Respiratory Exam: Decreased Breath Sounds, Rhonchi - Cardiovascular Exam Cardiovascular Exam: REGULAR RHYTHM - GI/Abdominal Exam GI & Abdominal Exam: Normal Bowel Sounds - Neurological Exam Neurological exam: Altered, CN II-XII Intact - Psychiatric Exam Psychiatric exam: Anxious Results - Vital Signs Recent Vital Signs: Last Vital Signs Temp 98.4 F 12/07/18 11:44 Pulse 119 H 12/07/18 11:44 Resp 20 12/07/18 11:44 BP 101/65 12/07/18 11:44 Pulse Ox 91 L 12/07/18 11:44 - Labs Result Diagrams: 12/07/18 04:15 12/07/18 04:15 Labs: Laboratory Results - last 24 hr 12/06/18 12/06/18 12/06/18 16:36 18:02 21:49 WBC RBC Hgb Hct MCV MCH MCHC RDW Plt Count MPV Neut % (Auto) Lymph % (Auto) [place] % (Auto) Eos % (Auto) Baso % (Auto) Neut # (Auto) Lymph # (Auto) [place] # (Auto) Eos # (Auto) Baso # (Auto) pCO2 pO2 HCO3 ABG pH ABG Total CO2 ABG O2 Saturation ABG O2 Content ABG Base Excess ABG Hemoglobin ABG Carboxyhemoglobin POC ABG HHb (Measured) ABG Methemoglobin ABG O2 Capacity Ayden Test A-a O2 Difference Hgb O2 Saturation Liter Flow Vent Mode FiO2 Sodium 134 Potassium 5.2 H Chloride 89 L Carbon Dioxide 35 H Anion Gap 15 BUN 32 H Creatinine 1.1 Est GFR ( Amer) 60 Est GFR (Non-Af Amer) 50 POC Glucose (mg/dL) 195 H 176 H Random Glucose 292 H Calcium 9.2 Troponin I < 0.0120 TSH 3rd Generation 12/07/18 12/07/18 12/07/18 04:15 04:15 05:14 WBC 8.0 RBC 3.81 Hgb 7.6 L Hct 27.4 L MCV 71.9 L MCH 20.0 L MCHC 27.8 L RDW 21.0 H Plt Count 307 MPV 8.0 Neut % (Auto) 57.9 Lymph % (Auto) 32.3 [place] % (Auto) 8.2 Eos % (Auto) 0.9 Baso % (Auto) 0.7 Neut # (Auto) 4.6 Lymph # (Auto) 2.6 [place] # (Auto) 0.6 Eos # (Auto) 0.1 Baso # (Auto) 0.1 pCO2 pO2 HCO3 ABG pH ABG Total CO2 ABG O2 Saturation ABG O2 Content ABG Base Excess ABG Hemoglobin ABG Carboxyhemoglobin POC ABG HHb (Measured) ABG Methemoglobin ABG O2 Capacity Ayden Test A-a O2 Difference Hgb O2 Saturation Liter Flow Vent Mode FiO2 Sodium 136 Potassium 4.3 Chloride 91 L Carbon Dioxide > 40 H* Anion Gap 9 L BUN 34 H Creatinine 0.7 Est GFR ( Amer) > 60 Est GFR (Non-Af Amer) > 60 POC Glucose (mg/dL) 148 H Random Glucose 137 H Calcium 9.0 Troponin I TSH 3rd Generation 1.56 12/07/18 12/07/18 09:42 10:45 WBC RBC Hgb Hct MCV MCH MCHC RDW Plt Count MPV Neut % (Auto) Lymph % (Auto) [place] % (Auto) Eos % (Auto) Baso % (Auto) Neut # (Auto) Lymph # (Auto) [place] # (Auto) Eos # (Auto) Baso # (Auto) pCO2 61 H pO2 60 L HCO3 36.9 H ABG pH 7.44 ABG Total CO2 43.3 H ABG O2 Saturation 95.3 ABG O2 Content 10.4 L ABG Base Excess 15.4 H ABG Hemoglobin 8.0 L ABG Carboxyhemoglobin 2.7 H POC ABG HHb (Measured) 4.5 ABG Methemoglobin 1.0 ABG O2 Capacity 10.9 L Ayden Test Yes A-a O2 Difference 78.0 Hgb O2 Saturation 91.8 L Liter Flow 20 Vent Mode High flow lpm FiO2 30.0 Sodium Potassium Chloride Carbon Dioxide Anion Gap BUN Creatinine Est GFR ( Amer) Est GFR (Non-Af Amer) POC Glucose (mg/dL) 185 H Random Glucose Calcium Troponin I TSH 3rd Generation Assessment & Plan (1) Acute respiratory failure with hypoxia and hypercarbia Status: Acute (2) Anemia Status: Acute (3) Uncontrolled diabetes mellitus Status: Acute (4) JESUS and COPD overlap syndrome Status: Acute Priority: High - Assessment and Plan (Free Text) Plan: Admit to ICU recheck cbc transfuse if necessary abg's Consult with pulmonary and Cardiology
--- NOTE | 2018-12-07 14:45 | CP.PCM.PN ---
Subjective - Date & Time of Evaluation Date of Evaluation: 12/06/18 Time of Evaluation: 11:00 - Subjective Subjective: Patient feels a lot better Has no chest strong Still with mild SOB Noted to be pale Hgb 7.7 Objective - Vital Signs/Intake and Output Vital Signs (last 24 hours): Temp Pulse Resp BP Pulse Ox 98.4 F 119 H 20 101/65 91 L 12/07/18 11:44 12/07/18 11:44 12/07/18 11:44 12/07/18 11:44 12/07/18 11:44 - Medications Medications: Current Medications Acetaminophen (Tylenol 325mg Tab) 650 mg PO Q6 PRN PRN Reason: Pain, moderate (4-7) Last Admin: 12/06/18 22:21 Dose: 650 mg Albuterol/Ipratropium (Duoneb 3 Mg/0.5 Mg (3 Ml) Ud) 3 ml INH RQID [facility] Last Admin: 12/07/18 11:12 Dose: 3 ml Amoxicillin (Amoxil 500 Mg Cap) 500 mg PO Q8 [facility]; Protocol Docusate Sodium (Colace) 100 mg PO BID [facility] Last Admin: 12/07/18 09:44 Dose: 100 mg Ferrous Sulfate (Feosol) 325 mg PO DAILY [facility] Last Admin: 12/06/18 08:46 Dose: 325 mg Insulin Human Regular (Humulin R) 0 units SC [facility]; Protocol Last Admin: 12/07/18 12:45 Dose: 2 units Lactulose (Enulose) 20 gm PO DAILY PRN PRN Reason: Constipation Losartan Potassium (Cozaar) 25 mg PO DAILY [facility] Last Admin: 12/06/18 08:46 Dose: 25 mg Metformin HCl (Glucophage) 1,000 mg PO BIDWM [facility] Last Admin: 12/07/18 09:45 Dose: 1,000 mg Prednisone (Prednisone Tab) 20 mg PO DAILY [facility] Pregabalin (Lyrica) 50 mg PO BID [facility] Last Admin: 12/07/18 09:56 Dose: 50 mg - Labs Labs: 12/07/18 04:15 12/07/18 04:15 PT 12.5 Seconds (9.8-13.1) 12/05/18 11:57 INR 1.1 12/05/18 11:57 APTT 30.9 Seconds (25.6-37.1) 12/05/18 11:57 - Head Exam Head Exam: NORMAL INSPECTION - Eye Exam Eye Exam: Normal appearance - ENT Exam ENT Exam: Mucous Membranes Moist - Respiratory Exam Respiratory Exam: Clear to Ausculation Bilateral - Cardiovascular Exam Cardiovascular Exam: Tachycardia - GI/Abdominal Exam GI & Abdominal Exam: Normal Bowel Sounds - Neurological Exam Neurological Exam: Awake, Oriented x3 Assessment and Plan (1) Acute respiratory failure with hypoxia and hypercarbia Status: Acute (2) Anemia Status: Acute (3) Uncontrolled diabetes mellitus Status: Acute (4) JESUS and COPD overlap syndrome Status: Acute - Assessment and Plan (Free Text) Plan: Con tmeds Cont tx Nebtx repeat abg's check labs Foow up with Dr Cuello
--- NOTE | 2018-12-07 14:48 | CP.PCM.PN ---
Subjective - Date & Time of Evaluation Date of Evaluation: 12/07/18 Time of Evaluation: 11:00 - Subjective Subjective: Patient feels a lot better An [employer] was caled for her last night due to SVT. She responded well to treatment. She denies chest pain or SOB Hgb 7.6 Objective - Vital Signs/Intake and Output Vital Signs (last 24 hours): Temp Pulse Resp BP Pulse Ox 98.4 F 119 H 20 101/65 91 L 12/07/18 11:44 12/07/18 11:44 12/07/18 11:44 12/07/18 11:44 12/07/18 11:44 - Medications Medications: Current Medications Acetaminophen (Tylenol 325mg Tab) 650 mg PO Q6 PRN PRN Reason: Pain, moderate (4-7) Last Admin: 12/06/18 22:21 Dose: 650 mg Albuterol/Ipratropium (Duoneb 3 Mg/0.5 Mg (3 Ml) Ud) 3 ml INH RQID [facility] Last Admin: 12/07/18 11:12 Dose: 3 ml Amoxicillin (Amoxil 500 Mg Cap) 500 mg PO Q8 [facility]; Protocol Docusate Sodium (Colace) 100 mg PO BID [facility] Last Admin: 12/07/18 09:44 Dose: 100 mg Ferrous Sulfate (Feosol) 325 mg PO DAILY [facility] Last Admin: 12/06/18 08:46 Dose: 325 mg Insulin Human Regular (Humulin R) 0 units SC [facility]; Protocol Last Admin: 12/07/18 12:45 Dose: 2 units Lactulose (Enulose) 20 gm PO DAILY PRN PRN Reason: Constipation Losartan Potassium (Cozaar) 25 mg PO DAILY [facility] Last Admin: 12/06/18 08:46 Dose: 25 mg Metformin HCl (Glucophage) 1,000 mg PO BIDWM [facility] Last Admin: 12/07/18 09:45 Dose: 1,000 mg Prednisone (Prednisone Tab) 20 mg PO DAILY [facility] Pregabalin (Lyrica) 50 mg PO BID [facility] Last Admin: 12/07/18 09:56 Dose: 50 mg - Labs Labs: 12/07/18 04:15 12/07/18 04:15 PT 12.5 Seconds (9.8-13.1) 12/05/18 11:57 INR 1.1 12/05/18 11:57 APTT 30.9 Seconds (25.6-37.1) 12/05/18 11:57 - Head Exam Head Exam: NORMAL INSPECTION - Eye Exam Eye Exam: Normal appearance - ENT Exam ENT Exam: Mucous Membranes Moist - Respiratory Exam Respiratory Exam: Clear to Ausculation Bilateral - Cardiovascular Exam Cardiovascular Exam: REGULAR RHYTHM - GI/Abdominal Exam GI & Abdominal Exam: Normal Bowel Sounds Assessment and Plan (1) Acute respiratory failure with hypoxia and hypercarbia Status: Acute (2) Anemia Status: Acute (3) Uncontrolled diabetes mellitus Status: Acute (4) JESUS and COPD overlap syndrome Status: Acute - Assessment and Plan (Free Text) Plan: Cont meds Follow up with Dr Wiley Check ECHO Transfuse as anemia can provoke tachy arrhythmias and CHF Start phys therapy
[2018-12-07 15:04] LABS: IRON 61 ug/dL (37-170)
[2018-12-07 15:14] LABS: % IRON SATURATION 14 % (20-55); TOTAL IRON BINDING CAPACITY 442 ug/dL (250-450)
--- NOTE | 2018-12-07 21:04 | CARD ---
APPROVED REPORT Date of service: 12/07/2018 EXAM: Two-dimensional and M-mode echocardiogram with Doppler and color Doppler. Other Information Quality : GoodRhythm : Atrial Flutter INDICATION Abnormal EKG/Arrhythmia 2D DIMENSIONS IVSd1.56 (0.7-1.1cm)LVDd4.48 (3.9-5.9cm) LVOT Diameter2.04 (1.8-2.4cm)PWd0.96 (0.7-1.1cm) IVSs1.60 (0.8-1.2cm)LVDs3.17 (2.5-4.0cm) FS (%) 29.1 %PWs1.45 (0.8-1.2cm) M-Mode DIMENSIONS Left Atrium (MM)4.53 (2.5-4.0cm)IVSd0.91 (0.7-1.1cm) Aortic Root3.56 (2.2-3.7cm)LVDd5.19 (4.0-5.6cm) Aortic Cusp Exc.1.97 (1.5-2.0cm)PWd1.28 (0.7-1.1cm) IVSs1.69 cmFS (%) 46 % LVDs2.81 (2.0-3.8cm)PWs1.56 cm Mitral Valve E/A ratio0.0 TDI E/Lateral E'0.0E/Medial E'0.0 Tricuspid Valve TR Peak [id number] [id number] Peak Gr.35mmHg [id number] LEFT VENTRICLE The left ventricle is normal size. There is normal left ventricular wall thickness. The left ventricular systolic function is normal. The estimated ejection fraction is 60-65% No regional wall motion abnormalities noted.. The left ventricular diastolic function cannot be assessed due to underlying atrial flutter. No left ventricle thrombus noted on this study. There is no ventricular septal defect visualized. There is no left ventricular aneurysm. There is no mass noted in the left ventricle. RIGHT VENTRICLE The right ventricle is normal size. There is normal right ventricular wall thickness. The right ventricular systolic function is normal. ATRIA The left atrium is mildly dilated. The right atrium size is normal. The interatrial septum is intact with no evidence for an atrial septal defect. AORTIC VALVE The aortic valve is normal in structure. No aortic regurgitation is present. There is no aortic valvular stenosis. There is no aortic valvular vegetation. MITRAL VALVE The mitral valve is normal in structure. There is no evidence of mitral valve prolapse. There is no mitral valve stenosis. There is mild mitral valve regurgitation noted. TRICUSPID VALVE The tricuspid valve is normal in structure. There is mild tricuspid valve regurgitation noted. RVSP is calculated at 52 mm Hg. There is no tricuspid valve prolapse or vegetation. There is no tricuspid valve stenosis. PULMONIC VALVE The pulmonary valve is normal in structure. There is no pulmonic valvular regurgitation. There is no pulmonic valvular stenosis. GREAT VESSELS The aortic root is normal in size. The ascending aorta is normal in size. The pulmonary artery is normal. The IVC is dilated in size and collapses <50% with inspiration. PERICARDIAL EFFUSION There is no pericardial effusion. There is no pleural effusion. <Conclusion> The estimated ejection fraction is 60-65% The left ventricular diastolic function cannot be assessed due to underlying atrial flutter. The left atrium is mildly dilated. There is mild mitral valve regurgitation noted. There is mild tricuspid valve regurgitation noted. RVSP is calculated at 52 mm Hg. The IVC is dilated in size and collapses <50% with inspiration.
[2018-12-07] MEDS: diltiaZEM 120 mg/24 Hours CD Cap PO SCH (22:18)
[2018-12-07 22:23] LABS: FOLATE 19.3 ng/mL
[2018-12-08] MEDS ORDERED: Enoxaparin 100 mg Syringe SC SCH (04:00)
[2018-12-08 05:37] LABS: HEMOGLOBIN 9.6 g/dL (12.0-16.0); MEAN CELL VOLUME 74.4 fl (81.0-99.0); MEAN CORPUSCULAR HEMOGLOBIN 21.3 pg (27.0-31.0); MEAN CORPUSCULAR HGB CONC 28.7 g/dL (33.0-37.0); RBC 4.51 Mil/uL (3.80-5.20); RED CELL DISTRIBUTION WIDTH 22.7 % (11.5-14.5); WHITE BLOOD COUNT 8.2 K/uL (4.8-10.8)
[2018-12-08 06:03] LABS: INR 1.1
[2018-12-08 06:06] LABS: ABG ALLEN TEST YES; ARTERIAL BLOOD GAS HCO3 34.5 mmol/L (21-28); ARTERIAL BLOOD GAS O2 CAPACITY 13.6 mL/dL (16-24); ARTERIAL BLOOD GAS O2 CONTENT 12.3 ML/dL (15-23); ARTERIAL BLOOD GAS O2 SAT 90.7 % (95-98); ARTERIAL BLOOD GAS PCO2 82 mm/Hg (35-45); ARTERIAL BLOOD GAS PH 7.31 (7.35-7.45); ARTERIAL BLOOD GAS PO2 58 mm/Hg (80-100); ARTERIAL BLOOD GAS TCO2 43.8 mmol/L (22-28)
[2018-12-08 06:06] LABS: PARTIAL THROMBOPLASTIN TIME 27.7 Seconds (25.6-37.1)
[2018-12-08 06:09] LABS: BLOOD UREA NITROGEN 26 mg/dl (7-17); GFR NON-AFRICAN AMERICAN > 60
[2018-12-08] MEDS: Enoxaparin 100 mg Syringe SC SCH ×2 (06:34→16:23)
[2018-12-08] MEDS: Insulin Regular 100 units/ml SC SCH ×4 (06:35→22:00)
[2018-12-08] MEDS: diltiaZEM 120 mg/24 Hours CD Cap PO SCH (08:04)
[2018-12-08] MEDS: Albuterol-Ipratrop 3 mg / 0.5 (3 ml) UD INH SCH ×4 (08:10→20:06)
--- NOTE | 2018-12-08 08:31 | CARD ---
APPROVED REPORT Date of service: 12/08/2018 EKG Measurement Heart [id number] <Conclusion> Atrial fibrillation with rapid ventricular response Right bundle branch block Abnormal ECG
--- NOTE | 2018-12-08 08:31 | CON ---
DATE: 12/07/2018 REFERRING PHYSICIAN: Misael Boswell MD REASON FOR CONSULTATION: Anemia. HISTORY OF PRESENT ILLNESS: This is a very ankit 68-year-old female with history of hypertension, hypercholesterolemia, bad COPD, comes in with hypercapnic respiratory failure, basically has . GI was called for anemia. The patient is at baseline on 24 hours oxygen supplementation, gets short of breath even walking around. Has no evidence of any GI complaints or any GI bleeding. No nausea, no vomiting, no fevers or chills. Has some cough. No melena, no hematochezia. Currently lying in bed comfortably, no apparent distress. PAST MEDICAL HISTORY: As above. PAST SURGICAL HISTORY: As above. MEDICATIONS: Reviewed. REVIEW OF SYSTEMS: All other systems have been reviewed and negative apart from the HPI. PHYSICAL EXAMINATION: VITAL SIGNS: Here in the hospital are grossly unremarkable. GENERAL: A pleasant elderly-appearing female, lying in bed comfortably, no acute distress. HEENT: Head: Normocephalic, atraumatic. Eyes: Pupils are equally reactive to light bilaterally. No conjunctival pallor or icterus. NECK: Supple. Normal range of motion. No lymph nodes appreciated. LUNGS: Coarse breath sounds and wheezing bilaterally. HEART: S1 and S2. Tachycardia. ABDOMEN: Soft, nontender. Bowel sounds are present. No rebound. No guarding. RECTAL: Deferred. EXTREMITIES: Pulses present bilaterally. SKIN: Warm, dry, intact. NEUROLOGIC: A and O x3. LABORATORY DATA: Labs and radiology have been reviewed. WBC is 8.9, hemoglobin is 7.6 and platelets are stable, hematocrit. Her pCO2 is 61. ASSESSMENT AND PLAN: This is a 68-year-old female with end-stage chronic obstructive pulmonary disease and anemia. Her anemia appears to be chronic for which she is on iron. She had an outside GI for which she could not tolerate any sedation, so they got virtual colonoscopy which was grossly unremarkable. No , but has no GI complaints. Given her age and comorbidities and risks of anesthesia, respiratory failure, we would not pursue any procedures unless critically ill and decompensated from gastrointestinal bleeding. At this point, transfuse as needed, PPI once a day prophylaxis. No evidence of bleeding at this point. The patient is stable from gastrointestinal standpoint, but her pulmonary status is compromised. Thank you for the consult. Dago Mathur MD/ PhD cc: Misael Boswell MD
[2018-12-08] MEDS ORDERED: Enoxaparin 40 mg Syringe SC SCH (09:00)
--- NOTE | 2018-12-08 11:08 | CP.PCM.PN ---
Subjective - Date & Time of Evaluation Date of Evaluation: 12/08/18 Time of Evaluation: 11:07 - Subjective Subjective: Seen on morning rounds in telemetry. Had been on BiPAP mask ventilation overnight. Back on high flow nasal canula presently. Feels improved from admission. Vital signs remain stable, afebrile. Cardiac arrhythmia noted overnight (a fib with RVR). Admits to occasional congested cough and able to expectorate a small amount of sputum. Transfused 2 units of PRBC yesterday. Trace dependant edema of both legs w/o cyanosis, warm to touch. Neck is supple and trachea midline. No dullness on chest percussion. Breath sounds are very much diminished bilaterally. Rare dry basal rales posteriorly, no audible wheezes or bronchial breath sounds. Heart sounds are distant, tachy at 96 BPM. Placed on regular nasal canula at 4 LPM flow with resultant SpO2 93%. Will continue to use NPPV BiPAP mask overnight I-12, E-6, O2-30%, RR 14 BPM. Amoxicillin started empirically for exacerbation of chronic bronchitis. Prednisone decreased to 15 MG daily. Objective - Vital Signs/Intake and Output Vital Signs (last 24 hours): Temp Pulse Resp BP Pulse Ox 97.9 F 127 H 18 113/74 90 L 12/08/18 07:58 12/08/18 08:04 12/08/18 08:35 12/08/18 08:04 12/08/18 07:58 Intake and Output: 12/07/18 12/08/18 23:59 11:59 Intake Total 1900 325 Balance 1900 325 - Medications Medications: Current Medications Acetaminophen (Tylenol 325mg Tab) 650 mg PO Q6 PRN PRN Reason: Pain, moderate (4-7) Last Admin: 12/06/18 22:21 Dose: 650 mg Albuterol/Ipratropium (Duoneb 3 Mg/0.5 Mg (3 Ml) Ud) 3 ml INH RQID [facility] Last Admin: 12/08/18 08:10 Dose: 3 ml Amoxicillin (Amoxil 500 Mg Cap) 500 mg PO Q8 [facility]; Protocol Last Admin: 12/08/18 08:04 Dose: 500 mg Diltiazem HCl (Cardizem Cd) 120 mg PO DAILY [facility] Last Admin: 12/08/18 08:04 Dose: 120 mg Docusate Sodium (Colace) 100 mg PO BID [facility] Last Admin: 12/08/18 08:05 Dose: 100 mg Enoxaparin Sodium (Lovenox) 100 mg SC Q12H [facility]; Protocol Last Admin: 12/08/18 06:34 Dose: 100 mg Ferrous Sulfate (Feosol) 325 mg PO DAILY [facility] Last Admin: 12/08/18 08:05 Dose: 325 mg Insulin Human Regular (Humulin R) 0 units SC [facility]; Protocol Last Admin: 12/08/18 06:35 Dose: Not Given Lactulose (Enulose) 20 gm PO DAILY PRN PRN Reason: Constipation Losartan Potassium (Cozaar) 25 mg PO DAILY [facility] Last Admin: 12/06/18 08:46 Dose: 25 mg Metformin HCl (Glucophage) 1,000 mg PO BIDWM [facility] Last Admin: 12/08/18 08:04 Dose: 1,000 mg Prednisone (Prednisone Tab) 15 mg PO DAILY [facility] Pregabalin (Lyrica) 50 mg PO BID [facility] Last Admin: 12/08/18 08:20 Dose: 50 mg - Labs Labs: 12/08/18 04:30 12/08/18 04:30 PT 12.0 Seconds (9.8-13.1) 12/08/18 04:30 INR 1.1 12/08/18 04:30 APTT 27.7 Seconds (25.6-37.1) 12/08/18 04:30 Assessment and Plan (1) Chronic respiratory failure with hypoxia and hypercapnia Status: Acute (2) Acute exacerbation of chronic obstructive pulmonary disease (COPD) Status: Acute (3) JESUS and COPD overlap syndrome Status: Acute
[2018-12-09] MEDS: Enoxaparin 100 mg Syringe SC SCH ×3 (06:08→18:14)
[2018-12-09] MEDS: Insulin Regular 100 units/ml SC SCH ×4 (06:57→23:03)
[2018-12-09] MEDS: Albuterol-Ipratrop 3 mg / 0.5 (3 ml) UD INH SCH ×4 (07:57→19:05)
--- NOTE | 2018-12-09 08:52 | CP.PCM.PN ---
Subjective - Date & Time of Evaluation Date of Evaluation: 12/09/18 Time of Evaluation: 08:20 - Subjective Subjective: patient feels well. had an episode of rapid atrial fibrillation yesterday. s/p transfusion Objective - Vital Signs/Intake and Output Vital Signs (last 24 hours): Temp Pulse Resp BP Pulse Ox 97.7 F 84 18 106/55 L 90 L 12/09/18 07:37 12/09/18 07:37 12/09/18 07:37 12/09/18 07:37 12/09/18 07:37 - Medications Medications: Current Medications Acetaminophen (Tylenol 325mg Tab) 650 mg PO Q6 PRN PRN Reason: Pain, moderate (4-7) Last Admin: 12/06/18 22:21 Dose: 650 mg Albuterol/Ipratropium (Duoneb 3 Mg/0.5 Mg (3 Ml) Ud) 3 ml INH RQID [facility] Last Admin: 12/09/18 07:57 Dose: 3 ml Amoxicillin (Amoxil 500 Mg Cap) 500 mg PO Q8 [facility]; Protocol Last Admin: 12/09/18 01:40 Dose: 500 mg Diltiazem HCl (Cardizem Cd) 120 mg PO DAILY [facility] Last Admin: 12/08/18 08:04 Dose: 120 mg Docusate Sodium (Colace) 100 mg PO BID [facility] Last Admin: 12/08/18 16:22 Dose: 100 mg Enoxaparin Sodium (Lovenox) 100 mg SC Q12H [facility]; Protocol Last Admin: 12/09/18 06:08 Dose: 100 mg Ferrous Sulfate (Feosol) 325 mg PO DAILY [facility] Last Admin: 12/08/18 08:05 Dose: 325 mg Insulin Human Regular (Humulin R) 0 units SC [facility]; Protocol Last Admin: 12/09/18 06:57 Dose: Not Given Lactulose (Enulose) 20 gm PO DAILY PRN PRN Reason: Constipation Losartan Potassium (Cozaar) 25 mg PO DAILY [facility] Last Admin: 12/06/18 08:46 Dose: 25 mg Metformin HCl (Glucophage) 1,000 mg PO BIDWM [facility] Last Admin: 12/08/18 16:22 Dose: 1,000 mg Prednisone (Prednisone Tab) 15 mg PO DAILY [facility] Pregabalin (Lyrica) 50 mg PO BID [facility] Last Admin: 12/08/18 16:22 Dose: 50 mg - Labs Labs: 12/08/18 04:30 12/08/18 04:30 PT 12.0 Seconds (9.8-13.1) 12/08/18 04:30 INR 1.1 12/08/18 04:30 APTT 27.7 Seconds (25.6-37.1) 12/08/18 04:30 - Constitutional Appears: Non-toxic - Head Exam Head Exam: NORMAL INSPECTION - Eye Exam Eye Exam: Normal appearance - ENT Exam ENT Exam: Mucous Membranes Moist - Neck Exam Neck Exam: Full ROM - Respiratory Exam Respiratory Exam: Decreased Breath Sounds - Cardiovascular Exam Cardiovascular Exam: REGULAR RHYTHM - GI/Abdominal Exam GI & Abdominal Exam: Normal Bowel Sounds - Rectal Exam Rectal Exam: Deferred - Extremities Exam Extremities Exam: absent: Pedal Edema - Back Exam Back Exam: NORMAL INSPECTION - Neurological Exam Neurological Exam: Alert - Psychiatric Exam Psychiatric exam: Normal Affect - Skin Skin Exam: Normal Color Assessment and Plan (1) SVT (supraventricular tachycardia) Status: Acute (2) Anemia Assessment & Plan: improved with transfusion Status: Acute (3) Paroxysmal atrial fibrillation Assessment & Plan: currently rate controlled. I recommend medical therapy. will have to weigh risk benefit of oral anticoagulation given anemia requiring blood transfusion Status: Acute
[2018-12-09] MEDS: diltiaZEM 120 mg/24 Hours CD Cap PO SCH (09:38)
--- NOTE | 2018-12-09 12:08 | CP.PCM.PN ---
Subjective - Date & Time of Evaluation Date of Evaluation: 12/09/18 Time of Evaluation: 12:06 - Subjective Subjective: Seen on rounds in telemetry. Has been using BiPAP overnight and regular nasal canula during the day. She claims to sleep well and feels rested. No overnight events noted. Vital signs are stable with low normal BP. Accucheck high 271 in last 24 hrs. No labs from today. Pharynx is pink and moist. Neck is supple and trachea midline. Trace dependant edema, no cyanosis. No dullness on chest percussion. Breath sounds are diminished bilaterally. Few dry rales present in both lower lobes. No audible wheezing or bronchial breathing. Heart sounds are very distant, sl tachy in 90s. Abdomen is obese and non-tender with NABS. Prednisone reduced again for tomorrow AM. Oxygen reduced to 3 LPM via NC; SpO2 stayed at 92%. Will need one more ABG prior to discharge. Will need BiPAP at home upon discharge. Already has home O2. Inhalation therapy remains unchanged. Objective - Vital Signs/Intake and Output Vital Signs (last 24 hours): Temp Pulse Resp BP Pulse Ox 98.2 F 93 H 18 109/71 90 L 12/09/18 11:45 12/09/18 11:45 12/09/18 11:45 12/09/18 11:45 12/09/18 11:45 - Medications Medications: Current Medications Acetaminophen (Tylenol 325mg Tab) 650 mg PO Q6 PRN PRN Reason: Pain, moderate (4-7) Last Admin: 12/06/18 22:21 Dose: 650 mg Albuterol/Ipratropium (Duoneb 3 Mg/0.5 Mg (3 Ml) Ud) 3 ml INH RQID [facility] Last Admin: 12/09/18 07:57 Dose: 3 ml Amoxicillin (Amoxil 500 Mg Cap) 500 mg PO Q8 [facility]; Protocol Last Admin: 12/09/18 09:38 Dose: 500 mg Diltiazem HCl (Cardizem Cd) 120 mg PO DAILY [facility] Last Admin: 12/09/18 09:38 Dose: 120 mg Docusate Sodium (Colace) 100 mg PO BID [facility] Last Admin: 12/09/18 09:38 Dose: 100 mg Enoxaparin Sodium (Lovenox) 100 mg SC Q12H [facility] [place]; Protocol Last Admin: 12/09/18 06:08 Dose: 100 mg Ferrous Sulfate (Feosol) 325 mg PO DAILY [facility] Last Admin: 12/09/18 09:38 Dose: 325 mg Insulin Human Regular (Humulin R) 0 units SC ACHS [facility]; Protocol Last Admin: 12/09/18 06:57 Dose: Not Given Lactulose (Enulose) 20 gm PO DAILY PRN PRN Reason: Constipation Losartan Potassium (Cozaar) 25 mg PO DAILY [facility] Last Admin: 12/06/18 08:46 Dose: 25 mg Metformin HCl (Glucophage) 1,000 mg PO BIDWM [facility] Last Admin: 12/09/18 09:38 Dose: 1,000 mg Prednisone (Prednisone Tab) 10 mg PO DAILY [facility] Pregabalin (Lyrica) 50 mg PO BID [facility] Last Admin: 12/09/18 09:38 Dose: 50 mg - Labs Labs: 12/08/18 04:30 12/08/18 04:30 PT 12.0 Seconds (9.8-13.1) 12/08/18 04:30 INR 1.1 12/08/18 04:30 APTT 27.7 Seconds (25.6-37.1) 12/08/18 04:30 Assessment and Plan (1) Chronic respiratory failure with hypoxia and hypercapnia Status: Acute (2) Acute exacerbation of chronic obstructive pulmonary disease (COPD) Status: Acute (3) JESUS and COPD overlap syndrome Status: Acute
--- NOTE | 2018-12-09 12:57 | CP.PCM.PN ---
Subjective - Date & Time of Evaluation Date of Evaluation: 12/10/18 Time of Evaluation: 12:00 - Subjective Subjective: patient seen and examined at bedside. Interim events noted improving though still sob at times. unable to fully cough denies cp/fever/chills. available diagnostic data reviewed Objective Vital Signs Stable - Constitutional Appears: Non-toxic, No Acute Distress - Head Exam Head Exam: NORMAL INSPECTION - Eye Exam Eye Exam: Normal appearance - Respiratory Exam Respiratory Exam: NORMAL BREATHING PATTERN, with supplementation oxygen - Cardiovascular Exam Cardiovascular Exam: +S1, +S2 - GI/Abdominal Exam GI & Abdominal Exam: Soft - Neurological Exam Neurological Exam: Alert, Awake - Psychiatric Exam Psychiatric exam: Normal Affect, Normal Mood - Skin Skin Exam: Normal Color, Warm Assessment and Plan monitor vitals monitor labs Cont meds Cont tx add expectorant consultants appreciated input rest of plan as ordered Assessment and Plan (1) Acute respiratory failure with hypoxia and hypercarbia Status: Acute (2) Acute exacerbation of chronic obstructive pulmonary disease (COPD) Status: Acute
[2018-12-10 04:46] LABS: ABG ALLEN TEST YES; ARTERIAL BLOOD GAS HCO3 34.7 mmol/L (21-28); ARTERIAL BLOOD GAS O2 CAPACITY 12.3 mL/dL (16-24); ARTERIAL BLOOD GAS O2 CONTENT 11.8 ML/dL (15-23); ARTERIAL BLOOD GAS PCO2 73 mm/Hg (35-45); ARTERIAL BLOOD GAS PH 7.35 (7.35-7.45); ARTERIAL BLOOD GAS PO2 64 mm/Hg (80-100); ARTERIAL BLOOD GAS TCO2 42.5 mmol/L (22-28)
[2018-12-10] MEDS: Enoxaparin 100 mg Syringe SC SCH ×2 (05:47→17:03)
[2018-12-10] MEDS: Insulin Regular 100 units/ml SC SCH ×4 (07:08→23:00)
[2018-12-10 07:13] LABS: MEAN CELL VOLUME 75.3 fl (81.0-99.0); MEAN CORPUSCULAR HEMOGLOBIN 21.4 pg (27.0-31.0); MEAN CORPUSCULAR HGB CONC 28.4 g/dL (33.0-37.0); RBC 4.23 Mil/uL (3.80-5.20); RED CELL DISTRIBUTION WIDTH 22.6 % (11.5-14.5)
[2018-12-10 07:41] LABS: ALB/GLOB RATIO 1.1 (1.0-2.1); ALBUMIN 3.4 g/dL (3.5-5.0); ALT/SGPT 25 U/L (9-52); AST/SGOT 31 U/L (14-36); BLOOD UREA NITROGEN 17 mg/dl (7-17); CALCIUM 9.1 mg/dL (8.4-10.2); GFR NON-AFRICAN AMERICAN > 60
[2018-12-10] MEDS: Albuterol-Ipratrop 3 mg / 0.5 (3 ml) UD INH SCH ×4 (08:15→19:28)
[2018-12-10] MEDS: diltiaZEM 120 mg/24 Hours CD Cap PO SCH (08:43)
--- NOTE | 2018-12-10 15:04 | CP.PCM.PN ---
Subjective - Date & Time of Evaluation Date of Evaluation: 12/08/18 Time of Evaluation: 10:00 - Subjective Subjective: patient seen and examined at bedside. Interim events noted improving though still sob at times denies cp/fever/chills. available diagnostic data reviewed Objective Vital Signs Stable - Constitutional Appears: Non-toxic, No Acute Distress - Head Exam Head Exam: NORMAL INSPECTION - Eye Exam Eye Exam: Normal appearance - Respiratory Exam Respiratory Exam: NORMAL BREATHING PATTERN, with supplementation oxygen - Cardiovascular Exam Cardiovascular Exam: +S1, +S2 - GI/Abdominal Exam GI & Abdominal Exam: Soft - Neurological Exam Neurological Exam: Alert, Awake - Psychiatric Exam Psychiatric exam: Normal Affect, Normal Mood - Skin Skin Exam: Normal Color, Warm Assessment and Plan monitor vitals monitor labs Cont meds Cont tx consultants appreciated input rest of plan as ordered Assessment and Plan (1) Acute respiratory failure with hypoxia and hypercarbia Status: Acute (2) Acute exacerbation of chronic obstructive pulmonary disease (COPD) Status: Acute
--- NOTE | 2018-12-10 15:06 | CP.PCM.PN ---
Subjective - Date & Time of Evaluation Date of Evaluation: 12/09/18 Time of Evaluation: 11:00 - Subjective Subjective: patient seen and examined at bedside. Interim events noted improving though still sob at times denies cp/fever/chills. available diagnostic data reviewed Objective Vital Signs Stable - Constitutional Appears: Non-toxic, No Acute Distress - Head Exam Head Exam: NORMAL INSPECTION - Eye Exam Eye Exam: Normal appearance - Respiratory Exam Respiratory Exam: NORMAL BREATHING PATTERN, with supplementation oxygen - Cardiovascular Exam Cardiovascular Exam: +S1, +S2 - GI/Abdominal Exam GI & Abdominal Exam: Soft - Neurological Exam Neurological Exam: Alert, Awake - Psychiatric Exam Psychiatric exam: Normal Affect, Normal Mood - Skin Skin Exam: Normal Color, Warm Assessment and Plan monitor vitals monitor labs Cont meds Cont tx consultants appreciated input rest of plan as ordered Assessment and Plan (1) Acute respiratory failure with hypoxia and hypercarbia Status: Acute (2) Acute exacerbation of chronic obstructive pulmonary disease (COPD) Status: Acute
[2018-12-10] MEDS: guaiFENesin 600 mg ER Tab PO SCH (21:58)
[2018-12-11] MEDS: Enoxaparin 100 mg Syringe SC SCH (06:38)
[2018-12-11] MEDS: Albuterol-Ipratrop 3 mg / 0.5 (3 ml) UD INH SCH ×4 (07:44→19:15)
[2018-12-11] MEDS: diltiaZEM 120 mg/24 Hours CD Cap PO SCH (09:16)
[2018-12-11] MEDS: guaiFENesin 600 mg ER Tab PO SCH ×2 (09:17→20:25)
[2018-12-11] MEDS: Insulin Regular 100 units/ml SC SCH ×4 (09:17→21:51)
--- NOTE | 2018-12-11 09:56 | CP.PCM.PN ---
Subjective - Date & Time of Evaluation Date of Evaluation: 12/11/18 Time of Evaluation: 09:55 - Subjective Subjective: resting comfortably Objective - Vital Signs/Intake and Output Vital Signs (last 24 hours): Temp Pulse Resp BP Pulse Ox 97.8 F 108 H 20 111/68 95 12/11/18 08:22 12/11/18 09:16 12/11/18 08:22 12/11/18 09:16 12/11/18 08:22 - Medications Medications: Current Medications Acetaminophen (Tylenol 325mg Tab) 650 mg PO Q6 PRN PRN Reason: Pain, moderate (4-7) Last Admin: 12/06/18 22:21 Dose: 650 mg Acetazolamide (Diamox 250 Mg Tab) 250 mg PO BID [facility] Last Admin: 12/11/18 09:15 Dose: 250 mg Albuterol/Ipratropium (Duoneb 3 Mg/0.5 Mg (3 Ml) Ud) 3 ml INH RQID [facility] Last Admin: 12/11/18 07:44 Dose: 3 ml Amoxicillin (Amoxil 500 Mg Cap) 500 mg PO Q8 [facility]; Protocol Last Admin: 12/11/18 09:15 Dose: 500 mg Diltiazem HCl (Cardizem Cd) 120 mg PO DAILY [facility] Last Admin: 12/11/18 09:16 Dose: 120 mg Docusate Sodium (Colace) 100 mg PO BID [facility] Last Admin: 12/11/18 09:15 Dose: 100 mg Ferrous Sulfate (Feosol) 325 mg PO DAILY [facility] Last Admin: 12/11/18 09:15 Dose: 325 mg Guaifenesin (Mucinex La) 1,200 mg PO Q12 [facility] Last Admin: 12/11/18 09:17 Dose: 1,200 mg Insulin Human Regular (Humulin R) 0 units SC [facility]; Protocol Last Admin: 12/11/18 09:17 Dose: Not Given Lactulose (Enulose) 20 gm PO DAILY PRN PRN Reason: Constipation Losartan Potassium (Cozaar) 25 mg PO DAILY [facility] Last Admin: 12/06/18 08:46 Dose: 25 mg Metformin HCl (Glucophage) 1,000 mg PO BIDWM [facility] Last Admin: 12/11/18 09:14 Dose: 1,000 mg Prednisone (Prednisone Tab) 10 mg PO DAILY [facility] Last Admin: 12/11/18 09:18 Dose: 10 mg - Labs Labs: 12/10/18 06:45 12/10/18 06:45 PT 12.0 Seconds (9.8-13.1) 12/08/18 04:30 INR 1.1 12/08/18 04:30 APTT 27.7 Seconds (25.6-37.1) 12/08/18 04:30 - Head Exam Head Exam: NORMOCEPHALIC - Respiratory Exam Respiratory Exam: Rales - Cardiovascular Exam Cardiovascular Exam: REGULAR RHYTHM - GI/Abdominal Exam GI & Abdominal Exam: Soft, Normal Bowel Sounds Assessment and Plan - Assessment and Plan (Free Text) Assessment: 68yo female with anemia no bleeding hgb stable
--- NOTE | 2018-12-11 11:28 | CP.PCM.PN ---
Subjective - Date & Time of Evaluation Date of Evaluation: 12/11/18 Time of Evaluation: 11:28 - Subjective Subjective: This 68-year-old female was seen on rounds in telemetry in the morning. She is complaining today of fatigue and poor sleep the night before. She has been placed on an PPV using BiPAP with inspiratory pressure 16cm and expiratory pressure 6cm, FiO2 is 28 with a backup rate of 16 breaths per minute. Using the settings arterial blood gas done yesterday morning showed PaCO2 of 73 and PaO2 of 64 with a bicarbonate of 34.7 and a pH of 7.35. Her vital signs have been stable and she continues to be afebrile. She is mildly tachycardic at 108 bpm. SPO2 is generally 9295%. Prednisone has been reduced to 10 mg once daily and will be reduced once again after tomorrow's morning dose to 5 mg once daily. On exam the extremities are warm to touch and there is no cyanosis. Trace to 1+ dependent edema is noted in both lower extremities. No calf tenderness or palpable venous cords. Her speech is fluent and her mentation appears clear. Pharynx is pink and mucous membranes are moist. Neck is supple and trachea is midline. Breath sounds are diminished but present equally in both lungs. Dry rales are heard in both lower lobes posteriorly. No wheezing. Heart sounds are distant and she remains slightly tachycardic. Chronic obstructive pulmonary disease with chronic hypercapnic and hypoxemic respiratory failure. Despite current efforts the patient has only improved partially with persistent hypercapnia from which she does continue to remain symptomatic. Advanced COPD with chronic respiratory failure in this patient may require the use of NPPV such as Trilogy on a continuous basis to support a stable lifestyle. Objective - Vital Signs/Intake and Output Vital Signs (last 24 hours): Temp Pulse Resp BP Pulse Ox 97.8 F 108 H 20 111/68 95 12/11/18 09:00 12/11/18 09:16 12/11/18 09:00 12/11/18 09:16 12/11/18 09:00 - Medications Medications: Current Medications Acetaminophen (Tylenol 325mg Tab) 650 mg PO Q6 PRN PRN Reason: Pain, moderate (4-7) Last Admin: 12/06/18 22:21 Dose: 650 mg Acetazolamide (Diamox 250 Mg Tab) 250 mg PO BID [facility] Last Admin: 12/11/18 09:15 Dose: 250 mg Albuterol/Ipratropium (Duoneb 3 Mg/0.5 Mg (3 Ml) Ud) 3 ml INH RQID [facility] Last Admin: 12/11/18 11:12 Dose: 3 ml Amoxicillin (Amoxil 500 Mg Cap) 500 mg PO Q8 [facility]; Protocol Last Admin: 12/11/18 09:15 Dose: 500 mg Diltiazem HCl (Cardizem Cd) 120 mg PO DAILY [facility] Last Admin: 12/11/18 09:16 Dose: 120 mg Docusate Sodium (Colace) 100 mg PO BID [facility] Last Admin: 12/11/18 09:15 Dose: 100 mg Ferrous Sulfate (Feosol) 325 mg PO DAILY [facility] Last Admin: 12/11/18 09:15 Dose: 325 mg Guaifenesin (Mucinex La) 1,200 mg PO Q12 [facility] Last Admin: 12/11/18 09:17 Dose: 1,200 mg Insulin Human Regular (Humulin R) 0 units SC ACHS [facility]; Protocol Last Admin: 12/11/18 09:17 Dose: Not Given Lactulose (Enulose) 20 gm PO DAILY PRN PRN Reason: Constipation Losartan Potassium (Cozaar) 25 mg PO DAILY [facility] Last Admin: 12/06/18 08:46 Dose: 25 mg Metformin HCl (Glucophage) 1,000 mg PO BIDWM [facility] Last Admin: 12/11/18 09:14 Dose: 1,000 mg Prednisone (Prednisone Tab) 10 mg PO DAILY [facility] Last Admin: 12/11/18 09:18 Dose: 10 mg Pregabalin (Lyrica) 50 mg PO BID [facility] - Labs Labs: 12/10/18 06:45 12/10/18 06:45 PT 12.0 Seconds (9.8-13.1) 12/08/18 04:30 INR 1.1 12/08/18 04:30 APTT 27.7 Seconds (25.6-37.1) 12/08/18 04:30 Assessment and Plan (1) Chronic respiratory failure with hypoxia and hypercapnia Status: Acute (2) Acute exacerbation of chronic obstructive pulmonary disease (COPD) Status: Acute (3) JESUS and COPD overlap syndrome Status: Acute
--- NOTE | 2018-12-11 16:06 | CP.PCM.PN ---
Subjective - Date & Time of Evaluation Date of Evaluation: 12/11/18 Time of Evaluation: 15:45 - Subjective Subjective: patient denies chest pain or dyspnea. Objective - Vital Signs/Intake and Output Vital Signs (last 24 hours): Temp Pulse Resp BP Pulse Ox 98.1 F 110 H 20 102/58 L 93 L 12/11/18 13:00 12/11/18 13:00 12/11/18 13:00 12/11/18 13:00 12/11/18 13:00 - Medications Medications: Current Medications Acetaminophen (Tylenol 325mg Tab) 650 mg PO Q6 PRN PRN Reason: Pain, moderate (4-7) Last Admin: 12/06/18 22:21 Dose: 650 mg Acetazolamide (Diamox 250 Mg Tab) 250 mg PO BID [facility] Last Admin: 12/11/18 09:15 Dose: 250 mg Albuterol/Ipratropium (Duoneb 3 Mg/0.5 Mg (3 Ml) Ud) 3 ml INH RQID [facility] Last Admin: 12/11/18 15:02 Dose: 3 ml Amoxicillin (Amoxil 500 Mg Cap) 500 mg PO Q8 [facility]; Protocol Last Admin: 12/11/18 09:15 Dose: 500 mg Diltiazem HCl (Cardizem Cd) 120 mg PO DAILY [facility] Last Admin: 12/11/18 09:16 Dose: 120 mg Docusate Sodium (Colace) 100 mg PO BID [facility] Last Admin: 12/11/18 09:15 Dose: 100 mg Ferrous Sulfate (Feosol) 325 mg PO DAILY [facility] Last Admin: 12/11/18 09:15 Dose: 325 mg Guaifenesin (Mucinex La) 1,200 mg PO Q12 [facility] Last Admin: 12/11/18 09:17 Dose: 1,200 mg Insulin Human Regular (Humulin R) 0 units SC [facility]; Protocol Last Admin: 12/11/18 12:22 Dose: 2 units Lactulose (Enulose) 20 gm PO DAILY PRN PRN Reason: Constipation Losartan Potassium (Cozaar) 25 mg PO DAILY [facility] Last Admin: 12/06/18 08:46 Dose: 25 mg Metformin HCl (Glucophage) 1,000 mg PO BIDWM [facility] Last Admin: 12/11/18 09:14 Dose: 1,000 mg Prednisone (Prednisone Tab) 10 mg PO DAILY [facility] Last Admin: 12/11/18 09:18 Dose: 10 mg Pregabalin (Lyrica) 50 mg PO BID [facility] - Labs Labs: 12/10/18 06:45 12/10/18 06:45 PT 12.0 Seconds (9.8-13.1) 12/08/18 04:30 INR 1.1 12/08/18 04:30 APTT 27.7 Seconds (25.6-37.1) 12/08/18 04:30 - Constitutional Appears: Non-toxic - Head Exam Head Exam: NORMAL INSPECTION - Eye Exam Eye Exam: Normal appearance - ENT Exam ENT Exam: Mucous Membranes Moist - Neck Exam Neck Exam: Full ROM - Respiratory Exam Respiratory Exam: Decreased Breath Sounds - Cardiovascular Exam Cardiovascular Exam: Tachycardia - GI/Abdominal Exam GI & Abdominal Exam: Normal Bowel Sounds - Rectal Exam Rectal Exam: Deferred - Extremities Exam Extremities Exam: absent: Pedal Edema - Back Exam Back Exam: NORMAL INSPECTION - Neurological Exam Neurological Exam: Alert - Psychiatric Exam Psychiatric exam: Normal Affect - Skin Skin Exam: Normal Color Assessment and Plan (1) SVT (supraventricular tachycardia) Assessment & Plan: no current arrhythmia. medical therapy Status: Acute (2) Anemia Status: Acute (3) Paroxysmal atrial fibrillation Assessment & Plan: will monitor. on cardizem Status: Acute
[2018-12-12 05:49] LABS: BLOOD UREA NITROGEN 18 mg/dl (7-17); CALCIUM 9.5 mg/dL (8.4-10.2); GFR NON-AFRICAN AMERICAN > 60
[2018-12-12] MEDS: Albuterol-Ipratrop 3 mg / 0.5 (3 ml) UD INH SCH ×2 (08:07→13:32)
[2018-12-12] MEDS: Insulin Regular 100 units/ml SC SCH ×2 (08:23→12:04)
[2018-12-12] MEDS: diltiaZEM 120 mg/24 Hours CD Cap PO SCH (08:54)
[2018-12-12] MEDS: guaiFENesin 600 mg ER Tab PO SCH (08:56)
--- NOTE | 2018-12-12 10:20 | CP.PCM.PN ---
Subjective - Date & Time of Evaluation Date of Evaluation: 12/12/18 Time of Evaluation: 10:16 - Subjective Subjective: Appears to be improving on present regimen. Plan for discharge to home today with DME. Medications will continue as presently given. Prednisone will be reduced to 10MG daily and discontinued Tuesday. Have been in contact with [employer] yesterday, and spoke with town planner this morning. Had a restfull night sleep and feels improved this morning. No audible wheezes heard this morningh. Breath sounds are very diminished bilaterally at baseline. Will continue to follow as outpatient. Instructed to call office . Objective - Vital Signs/Intake and Output Vital Signs (last 24 hours): Temp Pulse Resp BP Pulse Ox 97.4 F L 114 H 18 107/64 95 12/12/18 08:08 12/12/18 08:54 12/12/18 08:08 12/12/18 08:54 12/12/18 08:08 Intake and Output: 12/11/18 12/12/18 23:59 11:59 Intake Total 740 Balance 740 - Medications Medications: Current Medications Acetaminophen (Tylenol 325mg Tab) 650 mg PO Q6 PRN PRN Reason: Pain, moderate (4-7) Last Admin: 12/06/18 22:21 Dose: 650 mg Acetazolamide (Diamox 250 Mg Tab) 250 mg PO BID [facility] Last Admin: 12/12/18 08:55 Dose: 250 mg Albuterol/Ipratropium (Duoneb 3 Mg/0.5 Mg (3 Ml) Ud) 3 ml INH RQID [facility] Last Admin: 12/12/18 08:07 Dose: 3 ml Amoxicillin (Amoxil 500 Mg Cap) 500 mg PO Q8 [facility]; Protocol Last Admin: 12/12/18 08:53 Dose: 500 mg Diltiazem HCl (Cardizem Cd) 120 mg PO DAILY [facility] Last Admin: 12/12/18 08:54 Dose: 120 mg Docusate Sodium (Colace) 100 mg PO BID [facility] Last Admin: 12/12/18 08:54 Dose: 100 mg Ferrous Sulfate (Feosol) 325 mg PO DAILY [facility] Last Admin: 12/12/18 08:55 Dose: 325 mg Guaifenesin (Mucinex La) 1,200 mg PO Q12 [facility] Last Admin: 12/12/18 08:56 Dose: 1,200 mg Insulin Human Regular (Humulin R) 0 units SC ACHS [facility]; Protocol Last Admin: 12/12/18 08:23 Dose: Not Given Lactulose (Enulose) 20 gm PO DAILY PRN PRN Reason: Constipation Losartan Potassium (Cozaar) 25 mg PO DAILY [facility] Last Admin: 12/06/18 08:46 Dose: 25 mg Metformin HCl (Glucophage) 1,000 mg PO BIDWM [facility] Last Admin: 12/12/18 08:55 Dose: 1,000 mg Prednisone (Prednisone Tab) 10 mg PO DAILY [facility] Last Admin: 12/12/18 08:56 Dose: 10 mg Pregabalin (Lyrica) 50 mg PO BID [facility] Last Admin: 12/12/18 09:01 Dose: 50 mg - Labs Labs: 12/10/18 06:45 12/12/18 04:30 PT 12.0 Seconds (9.8-13.1) 12/08/18 04:30 INR 1.1 12/08/18 04:30 APTT 27.7 Seconds (25.6-37.1) 12/08/18 04:30 Assessment and Plan (1) Chronic respiratory failure with hypoxia and hypercapnia Status: Acute (2) Acute exacerbation of chronic obstructive pulmonary disease (COPD) Status: Acute (3) JESUS and COPD overlap syndrome Status: Acute
--- NOTE | 2018-12-12 10:36 | CP.PCM.DIS ---
<Juani Cifuentes - Last Filed: 12/12/18 12:22> Provider - Provider Date of Admission: 12/05/18 14:46 Attending physician: Misael Boswell MD Consults: 12/05/18 15:15 Pulmonology Consult Stat Comment: Consulting Provider: Dane Cuello Consulting Physician: Dane Cuello Reason for Consult: Hypercarbia 12/05/18 18:30 Case Management Referral Routine Comment: Physician Instructions: Reason For Exam: Reason for Referral: Discharge Planning 12/06/18 17:57 Cardiology Consult Routine Comment: Consulting Provider: Marcella Wiley Consulting Physician: Marcella Wiley Reason for Consult: tachycardia 12/07/18 14:25 Gastroenterology Consult Routine Comment: Consulting Provider: Dago Mathur Consulting Physician: Dago Mathur Reason for Consult: anemia Time Spent in preparation of Discharge (in minutes): 35 Diagnosis - Discharge Diagnosis (1) Acute exacerbation of chronic obstructive pulmonary disease (COPD) Status: Acute Priority: High (2) Acute respiratory failure with hypoxia and hypercarbia Status: Acute Hospital Course - Lab Results Lab Results: Micro Results 12/05/18 16:53 Blood-Venous Blood Culture - Final NO GROWTH AFTER 5 DAYS 12/05/18 16:53 Blood-Venous Gram Stain - Final TEST NOT PERFORMED 12/05/18 15:50 Blood-Venous Blood Culture - Final NO GROWTH AFTER 5 DAYS 12/05/18 15:50 Blood-Venous Gram Stain - Final TEST NOT PERFORMED 12/06/18 18:28 Naris MRSA Culture (Admit) - Final MRSA NOT DETECTED 12/05/18 19:04 Naris MRSA Culture (Admit) - Final MRSA NOT DETECTED Most Recent Lab Values WBC 7.0 K/uL (4.8-10.8) 12/10/18 06:45 RBC 4.23 Mil/uL (3.80-5.20) 12/10/18 06:45 Hgb 9.0 g/dL (12.0-16.0) L 12/10/18 06:45 Hct 31.9 % (34.0-47.0) L 12/10/18 06:45 MCV 75.3 fl (81.0-99.0) L 12/10/18 06:45 MCH 21.4 pg (27.0-31.0) L 12/10/18 06:45 MCHC 28.4 g/dL (33.0-37.0) L 12/10/18 06:45 RDW 22.6 % (11.5-14.5) H 12/10/18 06:45 Plt Count 265 K/uL (130-400) 12/10/18 06:45 MPV 8.0 fl (7.2-11.7) 12/07/18 04:15 Neut % (Auto) 57.9 % (50.0-75.0) 12/07/18 04:15 Lymph % (Auto) 32.3 % (20.0-40.0) 12/07/18 04:15 [place] % (Auto) 8.2 % (0.0-10.0) 12/07/18 04:15 Eos % (Auto) 0.9 % (0.0-4.0) 12/07/18 04:15 Baso % (Auto) 0.7 % (0.0-2.0) 12/07/18 04:15 Neut # (Auto) 4.6 K/uL (1.8-7.0) 12/07/18 04:15 Lymph # (Auto) 2.6 K/uL (1.0-4.3) 12/07/18 04:15 [place] # (Auto) 0.6 K/uL (0.0-0.8) 12/07/18 04:15 Eos # (Auto) 0.1 K/uL (0.0-0.7) 12/07/18 04:15 Baso # (Auto) 0.1 K/uL (0.0-0.2) 12/07/18 04:15 Retic Count 3.0 % (0.5-1.5) H 12/07/18 14:47 PT 12.0 Seconds (9.8-13.1) 12/08/18 04:30 INR 1.1 12/08/18 04:30 APTT 27.7 Seconds (25.6-37.1) 12/08/18 04:30 pCO2 73 mm/Hg (35-45) H* 12/10/18 04:42 pO2 64 mm/Hg (80-100) L 12/10/18 04:42 HCO3 34.7 mmol/L (21-28) H 12/10/18 04:42 ABG pH 7.35 (7.35-7.45) 12/10/18 04:42 ABG Total CO2 42.5 mmol/L (22-28) H 12/10/18 04:42 ABG O2 Saturation 96.0 % (95-98) 12/10/18 04:42 ABG O2 Content 11.8 ML/dL (15-23) L 12/10/18 04:42 ABG Base Excess 12.6 mmol/L (-2.0-3.0) H 12/10/18 04:42 ABG Hemoglobin 9.0 g/dL (11.7-17.4) L 12/10/18 04:42 ABG Carboxyhemoglobin 2.8 % (0.5-1.5) H 12/10/18 04:42 POC ABG HHb (Measured) 3.9 % (0.0-5.0) 12/10/18 04:42 ABG Methemoglobin 0.7 % (0.0-3.0) 12/10/18 04:42 ABG O2 Capacity 12.3 mL/dL (16-24) L 12/10/18 04:42 Ayden Test Yes 12/10/18 04:42 A-a O2 Difference 59.0 mm/Hg 12/10/18 04:42 Hgb O2 Saturation 92.6 % (95.0-98.0) L 12/10/18 04:42 Liter Flow 25 12/08/18 05:38 Vent Mode Bipap 12/10/18 04:42 Mechanical Rate 18 12/10/18 04:42 FiO2 30.0 % 12/10/18 04:42 Inspiratory BiPAP 14 12/10/18 04:42 Expiratory BiPAP 6 12/10/18 04:42 Crit Value Called To Dr johan stone 12/10/18 04:42 Crit Value Called By Matt 12/10/18 04:42 Crit Value Read Back Y 12/10/18 04:42 Blood Gas Notified Time 446 12/10/18 04:42 Sodium 137 mmol/l (132-148) 12/12/18 04:30 Potassium 3.8 MMOL/L (3.6-5.0) 12/12/18 04:30 Chloride 100 mmol/L (98-107) 12/12/18 04:30 Carbon Dioxide 31 mmol/L (22-30) H 12/12/18 04:30 Anion Gap 10 (10-20) 12/12/18 04:30 BUN 18 mg/dl (7-17) H 12/12/18 04:30 Creatinine 0.8 mg/dl (0.7-1.2) 12/12/18 04:30 Est GFR ( Amer) > 60 12/12/18 04:30 Est GFR (Non-Af Amer) > 60 12/12/18 04:30 POC Glucose (mg/dL) 131 mg/dL (65-110) H 12/12/18 05:18 Random Glucose 149 mg/dL (65-105) H 12/12/18 04:30 Calcium 9.5 mg/dL (8.4-10.2) 12/12/18 04:30 Phosphorus 4.9 mg/dl (2.5-4.5) H 12/05/18 11:57 Magnesium 1.7 MG/DL (1.6-2.3) 12/08/18 04:30 Iron 61 ug/dL (37-170) 12/07/18 14:47 TIBC 442 ug/dL (250-450) 12/07/18 14:47 % Saturation 14 % (20-55) L 12/07/18 14:47 Total Bilirubin 0.8 mg/dl (0.2-1.3) 12/10/18 06:45 AST 31 U/L (14-36) 12/10/18 06:45 ALT 25 U/L (9-52) 12/10/18 06:45 Alkaline Phosphatase 54 U/L (38-126) 12/10/18 06:45 Troponin I < 0.0120 ng/mL (0.00-0.120) 12/06/18 18:02 Total Protein 6.5 G/DL (6.3-8.2) 12/10/18 06:45 Albumin 3.4 g/dL (3.5-5.0) L 12/10/18 06:45 Globulin 3.1 gm/dL (2.2-3.9) 12/10/18 06:45 Albumin/Globulin Ratio 1.1 (1.0-2.1) 12/10/18 06:45 Vitamin B12 417 pg/mL (239-931) 12/07/18 14:47 Folate 19.3 ng/mL 12/07/18 14:47 TSH 3rd Generation 1.56 mIU/ML (0.46-4.68) 12/07/18 04:15 Urine Color Yellow (YELLOW) 12/05/18 19:00 Urine Clarity Slighty-cloudy (Clear) 12/05/18 19:00 Urine pH 6.0 (5.0-8.0) 12/05/18 19:00 Ur Specific Redford 1.025 (1.003-1.030) 12/05/18 19:00 Urine Protein Negative mg/dL (NEGATIVE) 12/05/18 19:00 Urine Glucose (UA) >=500 mg/dL (NEGATIVE) 12/05/18 19:00 Urine Ketones Negative mg/dL (NEGATIVE) 12/05/18 19:00 Urine Blood Small (NEGATIVE) 12/05/18 19:00 Urine Nitrate Negative (NEGATIVE) 12/05/18 19:00 Urine Bilirubin Negative (NEGATIVE) 12/05/18 19:00 Urine Urobilinogen 1.0 mg/dL (0.2-1.0) 12/05/18 19:00 Ur Leukocyte Esterase Neg Lisandro/uL (Negative) 12/05/18 19:00 Urine RBC (Auto) 4 /hpf (0-3) H 12/05/18 19:00 Urine Microscopic WBC 5 /hpf (0-5) 12/05/18 19:00 Ur Squamous Epith Cells 3 /hpf (0-5) 12/05/18 19:00 Urine Bacteria Rare (<OCC) 12/05/18 19:00 Stool Occult Blood Negative (NEGATIVE) 12/09/18 14:20 Influenza Typ A,B (EIA) Negative for flu a/b (NEGATIVE) 12/05/18 15:50 Blood Type A POSITIVE 12/07/18 14:47 Blood Type Confirm A POSITIVE 12/07/18 15:36 Antibody Screen Negative 12/07/18 14:47 Crossmatch See Detail 12/07/18 14:47 BBK History Checked No verified bt 12/07/18 14:47 - Hospital Course Hospital Course: 68 YO female with PMHx HTN, DM 2, JESUS COPD and HTN was admitted for respiratory distress with hypercapnia. Pt was treated with high flow and transitioned to BIPAP at night, cardiology and Pulmonary were consulted. Pt is has been stable, no overnight events and doing well this AM. Pt cleared for d.c by pulmonary and cardiology. Pt to follow up with PMD and sole stainer as outpatient. Discharge Exam - Head Exam Head Exam: NORMAL INSPECTION - Eye Exam Eye Exam: Normal appearance - ENT Exam ENT Exam: Mucous Membranes Moist - Respiratory Exam Respiratory Exam: Decreased Breath Sounds (in the lower lobes ), Clear to PA & Lateral, NORMAL BREATHING PATTERN - Cardiovascular Exam Cardiovascular Exam: REGULAR RHYTHM, +S1, +S2 - GI/Abdominal Exam GI & Abdominal Exam: Normal Bowel Sounds, Soft. absent: Tenderness - Back Exam Back exam: NORMAL INSPECTION - Neurological Exam Neurological exam: Alert, Oriented x3 Discharge Plan - Discharge Medications Prescriptions: RX: acetaZOLAMIDE [Diamox 250 mg Tab] 250 mg PO BID #60 tab RX: diltiaZEM CD [Cardizem CD] 120 mg PO DAILY #30 cap RX: predniSONE [predniSONE Tab] 10 mg PO DAILY #4 tab - Follow Up Plan Condition: STABLE Disposition: HOME/ ROUTINE Patient education suggested?: Yes Instructions: Exacerbation of COPD (DC) Additional Instructions: Please follow up with PMD and sole stainer in 1 week ER precautions reviewed with patient Referrals: Misael Boswell MD [Family Provider] - Dane Cuello MD [Staff Provider] - Marcella Wiley MD [Staff Provider] - <KenJohan - Last Filed: 12/12/18 17:13> Provider - Provider Date of Admission: 12/05/18 14:46 Attending physician: Misael Boswell MD Consults: 12/05/18 15:15 Pulmonology Consult Stat Comment: Consulting Provider: Dane Cuello Consulting Physician: Dane Cuello Reason for Consult: Hypercarbia 12/05/18 18:30 Case Management Referral Routine Comment: Physician Instructions: Reason For Exam: Reason for Referral: Discharge Planning 12/06/18 17:57 Cardiology Consult Routine Comment: Consulting Provider: Marcella Wiley Consulting Physician: Marcella Wiley Reason for Consult: tachycardia 12/07/18 14:25 Gastroenterology Consult Routine Comment: Consulting Provider: Dago Mathur Consulting Physician: Dago Mathur Reason for Consult: anemia Diagnosis - Discharge Diagnosis (1) Acute respiratory failure with hypoxia and hypercarbia Status: Acute (2) Acute exacerbation of chronic obstructive pulmonary disease (COPD) Status: Acute Priority: High Hospital Course - Lab Results Lab Results: Micro Results 12/05/18 16:53 Blood-Venous Blood Culture - Final NO GROWTH AFTER 5 DAYS 12/05/18 16:53 Blood-Venous Gram Stain - Final TEST NOT PERFORMED 12/05/18 15:50 Blood-Venous Blood Culture - Final NO GROWTH AFTER 5 DAYS 12/05/18 15:50 Blood-Venous Gram Stain - Final TEST NOT PERFORMED 12/06/18 18:28 Naris MRSA Culture (Admit) - Final MRSA NOT DETECTED 12/05/18 19:04 Naris MRSA Culture (Admit) - Final MRSA NOT DETECTED Most Recent Lab Values WBC 7.0 K/uL (4.8-10.8) 12/10/18 06:45 RBC 4.23 Mil/uL (3.80-5.20) 12/10/18 06:45 Hgb 9.0 g/dL (12.0-16.0) L 12/10/18 06:45 Hct 31.9 % (34.0-47.0) L 12/10/18 06:45 MCV 75.3 fl (81.0-99.0) L 12/10/18 06:45 MCH 21.4 pg (27.0-31.0) L 12/10/18 06:45 MCHC 28.4 g/dL (33.0-37.0) L 12/10/18 06:45 RDW 22.6 % (11.5-14.5) H 12/10/18 06:45 Plt Count 265 K/uL (130-400) 12/10/18 06:45 MPV 8.0 fl (7.2-11.7) 12/07/18 04:15 Neut % (Auto) 57.9 % (50.0-75.0) 12/07/18 04:15 Lymph % (Auto) 32.3 % (20.0-40.0) 12/07/18 04:15 [place] % (Auto) 8.2 % (0.0-10.0) 12/07/18 04:15 Eos % (Auto) 0.9 % (0.0-4.0) 12/07/18 04:15 Baso % (Auto) 0.7 % (0.0-2.0) 12/07/18 04:15 Neut # (Auto) 4.6 K/uL (1.8-7.0) 12/07/18 04:15 Lymph # (Auto) 2.6 K/uL (1.0-4.3) 12/07/18 04:15 [place] # (Auto) 0.6 K/uL (0.0-0.8) 12/07/18 04:15 Eos # (Auto) 0.1 K/uL (0.0-0.7) 12/07/18 04:15 Baso # (Auto) 0.1 K/uL (0.0-0.2) 12/07/18 04:15 Retic Count 3.0 % (0.5-1.5) H 12/07/18 14:47 PT 12.0 Seconds (9.8-13.1) 12/08/18 04:30 INR 1.1 12/08/18 04:30 APTT 27.7 Seconds (25.6-37.1) 12/08/18 04:30 pCO2 73 mm/Hg (35-45) H* 12/10/18 04:42 pO2 64 mm/Hg (80-100) L 12/10/18 04:42 HCO3 34.7 mmol/L (21-28) H 12/10/18 04:42 ABG pH 7.35 (7.35-7.45) 12/10/18 04:42 ABG Total CO2 42.5 mmol/L (22-28) H 12/10/18 04:42 ABG O2 Saturation 96.0 % (95-98) 12/10/18 04:42 ABG O2 Content 11.8 ML/dL (15-23) L 12/10/18 04:42 ABG Base Excess 12.6 mmol/L (-2.0-3.0) H 12/10/18 04:42 ABG Hemoglobin 9.0 g/dL (11.7-17.4) L 12/10/18 04:42 ABG Carboxyhemoglobin 2.8 % (0.5-1.5) H 12/10/18 04:42 POC ABG HHb (Measured) 3.9 % (0.0-5.0) 12/10/18 04:42 ABG Methemoglobin 0.7 % (0.0-3.0) 12/10/18 04:42 ABG O2 Capacity 12.3 mL/dL (16-24) L 12/10/18 04:42 Ayden Test Yes 12/10/18 04:42 A-a O2 Difference 59.0 mm/Hg 12/10/18 04:42 Hgb O2 Saturation 92.6 % (95.0-98.0) L 12/10/18 04:42 Liter Flow 12/08/18 05:38 Vent Mode Bipap 12/10/18 04:42 Mechanical Rate 18 12/10/18 04:42 FiO2 30.0 % 12/10/18 04:42 Inspiratory BiPAP 14 12/10/18 04:42 Expiratory BiPAP 6 12/10/18 04:42 Crit Value Called To Dr johan stone 12/10/18 04:42 Crit Value Called By Matt 12/10/18 04:42 Crit Value Read Back Y 12/10/18 04:42 Blood Gas Notified Time 446 12/10/18 04:42 Sodium 137 mmol/l (132-148) 12/12/18 04:30 Potassium 3.8 MMOL/L (3.6-5.0) 12/12/18 04:30 Chloride 100 mmol/L (98-107) 12/12/18 04:30 Carbon Dioxide 31 mmol/L (22-30) H 12/12/18 04:30 Anion Gap 10 (10-20) 12/12/18 04:30 BUN 18 mg/dl (7-17) H 12/12/18 04:30 Creatinine 0.8 mg/dl (0.7-1.2) 12/12/18 04:30 Est GFR ( Amer) > 60 12/12/18 04:30 Est GFR (Non-Af Amer) > 60 12/12/18 04:30 POC Glucose (mg/dL) 206 mg/dL (65-110) H 12/12/18 11:14 Random Glucose 149 mg/dL (65-105) H 12/12/18 04:30 Calcium 9.5 mg/dL (8.4-10.2) 12/12/18 04:30 Phosphorus 4.9 mg/dl (2.5-4.5) H 12/05/18 11:57 Magnesium 1.7 MG/DL (1.6-2.3) 12/08/18 04:30 Iron 61 ug/dL (37-170) 12/07/18 14:47 TIBC 442 ug/dL (250-450) 12/07/18 14:47 % Saturation 14 % (20-55) L 12/07/18 14:47 Total Bilirubin 0.8 mg/dl (0.2-1.3) 12/10/18 06:45 AST 31 U/L (14-36) 12/10/18 06:45 ALT 25 U/L (9-52) 12/10/18 06:45 Alkaline Phosphatase 54 U/L (38-126) 12/10/18 06:45 Troponin I < 0.0120 ng/mL (0.00-0.120) 12/06/18 18:02 Total Protein 6.5 G/DL (6.3-8.2) 12/10/18 06:45 Albumin 3.4 g/dL (3.5-5.0) L 12/10/18 06:45 Globulin 3.1 gm/dL (2.2-3.9) 12/10/18 06:45 Albumin/Globulin Ratio 1.1 (1.0-2.1) 12/10/18 06:45 Vitamin B12 417 pg/mL (239-931) 12/07/18 14:47 Folate 19.3 ng/mL 12/07/18 14:47 TSH 3rd Generation 1.56 mIU/ML (0.46-4.68) 12/07/18 04:15 Urine Color Yellow (YELLOW) 12/05/18 19:00 Urine Clarity Slighty-cloudy (Clear) 12/05/18 19:00 Urine pH 6.0 (5.0-8.0) 12/05/18 19:00 Ur Specific [place] 1.025 (1.003-1.030) 12/05/18 19:00 Urine Protein Negative mg/dL (NEGATIVE) 12/05/18 19:00 Urine Glucose (UA) >=500 mg/dL (NEGATIVE) 12/05/18 19:00 Urine Ketones Negative mg/dL (NEGATIVE) 12/05/18 19:00 Urine Blood Small (NEGATIVE) 12/05/18 19:00 Urine Nitrate Negative (NEGATIVE) 12/05/18 19:00 Urine Bilirubin Negative (NEGATIVE) 12/05/18 19:00 Urine Urobilinogen 1.0 mg/dL (0.2-1.0) 12/05/18 19:00 Ur Leukocyte Esterase Neg Lisandro/uL (Negative) 12/05/18 19:00 Urine RBC (Auto) 4 /hpf (0-3) H 12/05/18 19:00 Urine Microscopic WBC 5 /hpf (0-5) 12/05/18 19:00 Ur Squamous Epith Cells 3 /hpf (0-5) 12/05/18 19:00 Urine Bacteria Rare (<OCC) 12/05/18 19:00 Stool Occult Blood Negative (NEGATIVE) 12/09/18 14:20 Influenza Typ A,B (EIA) Negative for flu a/b (NEGATIVE) 12/05/18 15:50 Blood Type A POSITIVE 12/07/18 14:47 Blood Type Confirm A POSITIVE 12/07/18 15:36 Antibody Screen Negative 12/07/18 14:47 Crossmatch See Detail 12/07/18 14:47 BBK History Checked No verified bt 12/07/18 14:47 Attending/Attestation - Attestation I have personally seen and examined this patient.: Yes I have fully participated in the care of the patient.: Yes I have reviewed all pertinent clinical information, including history, physical exam and plan: Yes
[2018-12-12 12:21] VITALS: BP 102/67; PULSE 119; RESP 20; TEMP 98; O2SAT 96
== END 2018-12-12 14:00 | disposition home or self-care (01) | DRG 189 ==
LOC: H.ER 10:58 → H.ERHOLD 14:46 → H.ICU/CCU 18:07 → H.TEL 12-06 17:34
PROVIDERS: ADMIT Family Medicine; ATTEND Family Medicine
PROC: 5A09457 Assistance with Respiratory Ventilation, 24-96 Consecutive Hours, Continuous Positive Airway Pressure (ICD-10-PCS; principal; 2018-12-05)
PROC: 3E0F73Z Introduction of Anti-inflammatory into Respiratory Tract, Via Natural or Artificial Opening (ICD-10-PCS; 2018-12-05)
PROC: 3E0F7GC Introduction of Other Therapeutic Substance into Respiratory Tract, Via Natural or Artificial Opening (ICD-10-PCS; 2018-12-05)
PROC: 30233N1 Transfusion of Nonautologous Red Blood Cells into Peripheral Vein, Percutaneous Approach (ICD-10-PCS; 2018-12-07)
DX: J96.22 Acute and chronic respiratory failure with hypercapnia (principal); G93.41 Metabolic encephalopathy; J44.1 Chronic obstructive pulmonary disease with (acute) exacerbation; I47.1 Supraventricular tachycardia; M35.1 Other overlap syndromes; E87.2 Acidosis; J96.21 Acute and chronic respiratory failure with hypoxia; D63.8 Anemia in other chronic diseases classified elsewhere; I48.0 Paroxysmal atrial fibrillation; E11.65 Type 2 diabetes mellitus with hyperglycemia; I25.10 Atherosclerotic heart disease of native coronary artery without angina pectoris; G47.33 Obstructive sleep apnea (adult) (pediatric); E66.01 Morbid (severe) obesity due to excess calories; Z68.38 Body mass index [BMI] 38.0-38.9, adult; E11.40 Type 2 diabetes mellitus with diabetic neuropathy, unspecified; I11.0 Hypertensive heart disease with heart failure; I50.9 Heart failure, unspecified; E78.00 Pure hypercholesterolemia, unspecified; Z99.81 Dependence on supplemental oxygen; Z79.84 Long term (current) use of oral hypoglycemic drugs; Z79.01 Long term (current) use of anticoagulants; Z79.82 Long term (current) use of aspirin; Z95.5 Presence of coronary angioplasty implant and graft; Z85.828 Personal history of other malignant neoplasm of skin; Z87.891 Personal history of nicotine dependence; Z87.01 Personal history of pneumonia (recurrent)